=== PATIENT | male | born 1955 | race Caucasian/White ===

== ENCOUNTER 2018-05-07 12:36 | Inpatient (IN) | payer BC ==
--- NOTE | 2018-05-07 15:15 | CT ---
CTA CHEST WITH CONTRAST WITH 3D VOLUME RENDERING: Date: 05/07/18 Reference made to prior, recent noncontrast CT thorax. INDICATION: History of dyspnea, unproductive cough, with abnormal mass-like opacities on preceding noncontrast CT chest. FINDINGS: Redemonstration of a large mass centered about the mediastinum and left hilum. This does encase the l eft pulmonary arterial branches without a discrete filling defect of the pulmonary arterial system. T he adjacent left upper lobe reveals a prominent region of consolidation which consists of numerous de nsely packed small rounded nodules and other coalescent larger mass-like/nodular opacities. In additi on, there is interstitial and ground-glass opacity of the adjacent left pulmonary parenchyma. Numerou s conglomerate pathologically enlarged lymph nodes are redemonstrated within the chest, most notable within the superior and anterior mediastinum, with inferior extension into the paratracheal region, A P recess, and left hilar region. There is scattered vascular calcification. Pulmonary emphysema is pr esent. No evidence of pleural effusion or pneumothorax. IMPRESSION: Extensive mass-like conglomerate adenopathy of the chest, as discussed above, with probable associate d metastatic invasion of the left pulmonary parenchyma and possibly superimposed postobstructive cons olidation. Primary consideration would include lymphoma versus other malignancy. POS: MIGUEL ANGEL
[2018-05-07] MEDS ORDERED: ISOVUE-370 76%-LOCM 1 ML ONE (16:42)
[2018-05-07 17:49] VITALS: BMI 37.8
[2018-05-07] MEDS ORDERED: PROVENTIL INHALER 6.7 G (200 INHALATIONS) INH PRN (19:25)
[2018-05-07] MEDS ORDERED: predniSONE 5 MG TAB PO SCH (19:30)
[2018-05-07] MEDS ORDERED: Non-Formulary Item 1 EACH (Fluticasone/Vilanterol [Breo Ellipta] 1 INH) IH SCH (21:00)
[2018-05-07] MEDS ORDERED: Ondansetron ODT 4 MG TAB PO PRN (21:41)
[2018-05-07] MEDS ORDERED: Ondansetron PF 4 MG/2 ML Vial IVP PRN (21:41)
[2018-05-07] MEDS: CeleCOXIB 100 MG CAP PO SCH (21:51)
[2018-05-07] MEDS: Rosuvastatin 10 MG TAB PO SCH (21:51)
[2018-05-07] MEDS: Tamsulosin HCl 0.4 MG CAP PO SCH (21:51)
[2018-05-07] MEDS: Nicotine 14 MG PATCH TD SCH (23:00)
--- NOTE | 2018-05-08 02:50 | HP ---
PRIMARY CARE PHYSICIAN: Dr. Scott Abbott. CHIEF COMPLAINT: Cough and shortness of breath. HISTORY OF PRESENT ILLNESS: Mr. Perry is a pleasant 62-year-old man with past medical history of hypertension, GERD, obesity, atrial fibrillation, osteoarthritis, sleep apnea, and hyperlipidemia, who had presented to [facility] with cough and shortness of breath. He states that symptoms have been going on for roughly 3 months. He states over the last 3 months, he has been trying to avoid these symptoms himself, he had not wanted to follow up with his doctor due to the holidays and everything going on in his personal life. He had seen Dr. Abbott about 1 month ago and had treated him for possible bronchitis, he was started on Levaquin and prednisone. He states he had recently followed up with Dr. Abbott due to his worsening symptoms and then was increased on Levaquin and prednisone. The patient was also using albuterol at home as needed, but he states that he had noticed a little help from this. He states over the last 3 to 4 days, has been quite concerning due to the fact that he was coughing up blood. He states that his sputum was blood-streaked, however, this was quite concerning for him. He states he had followed up with his PCP earlier today; however, they had directed him to the emergency department for further evaluation and management. Upon arrival, he had underwent a chest x-ray which was abnormal that showed perihilar mass like opacity and silhouetting of the left heart margin and chest CT was recommended. He had then underwent a CT of chest without contrast, which did show a large left perihilar mass with mediastinal invasion as well as extensive subcarinal prevascular, AP window, right paratracheal adenopathy as well as right hilar lymph nodes. This was concerning for cancer. He then underwent CTA of chest which showed extensive masslike conglomerate adenopathy of chest with probable associated metastatic invasion of the left pulmonary parenchymal and possible superimposed postobstructive consolidation. He was then transferred up to telemetry for further monitoring and management. REVIEW OF SYSTEMS: Positive for cough, shortness of breath, hemoptysis, and overall generalized weakness that had been worsening over the last 3 months. All other review of systems reviewed and are negative except ones listed in HPI. PAST MEDICAL HISTORY: Hypertension, GERD, obesity, constipation, atrial fibrillation, osteoarthritis, low back pain, obstructive sleep apnea, hyperlipidemia. PAST SURGICAL HISTORY: Ablation, EGD normal in 2010, cervical diskectomy in 2014, back surgery x3, pacemaker in 2000, septoplasty. PSYCHIATRIC HISTORY: None. SOCIAL HISTORY: The patient smokes about a half pack daily. He also reports social alcohol use with 1-2 drinks per month on average, but denies any illicit drug use. KNOWN ALLERGIES: Atenolol, atorvastatin, hydrocodone, and loratadine. CURRENT HOME MEDICATIONS: 1. Colace 100 mg p.o. daily. 2. Celebrex 200 mg p.o. b.i.d. 3. Tamsulosin 0.4 mg p.o. at bedtime. 4. CoQ10 100 mg p.o. at bedtime. 5. Aspirin 81 mg p.o. at bedtime. 6. Metoprolol 50 mg p.o. daily. 7. Albuterol sulfate 8.5 g HFA 1-2 puffs inhalation every 4 hours as needed for shortness of breath. 8. Prednisone 5 mg dose pack which he is currently finishing, he is to take 3 mg today, 2 mg tomorrow, and 1 mg the next day. 9. Breo 100 mcg/25 mcg one inhalation at bedtime. 10. Rosuvastatin 10 mg p.o. at bedtime. 11. Omeprazole 40 mg p.o. at bedtime. PHYSICAL EXAMINATION: VITAL SIGNS: BP 143/68, pulse 82, respirations 22, O2 saturations 99% on 2 L via nasal cannula. GENERAL: The patient is alert and oriented x3. No acute distress noted. Several family members at bedside. HEENT: Head is atraumatic, normocephalic. Pupils round, reactive to light. Extraocular muscles intact. Oropharynx is clear without erythema or exudates. Moist mucous membranes noted. NECK: Supple. No JVD. No bruit noted. Trachea midline. RESPIRATORY: Scattered rhonchi throughout, worse on the left. CARDIOVASCULAR: Positive S1 and S2. Regular rate and rhythm. No murmur noted. ABDOMEN: Soft, nontender. Bowel sounds present. Obese. No masses noted. No peritoneal signs. No rigidity, guarding, or rebound. BACK: Nontender. No CVA tenderness. MUSCULOSKELETAL: Strength 5+ bilaterally in upper and lower extremities. Moves all extremities equal. Radial and pedal pulses palpable. No edema noted. NEUROLOGIC: Alert and oriented x3. Speech is intact and normal. No focal deficits noted. No sensory deficits noted. SKIN: Warm, dry, and intact. No lesions. No rashes noted. PSYCHIATRIC: Does appear slightly anxious, otherwise good affect. LABORATORY DATA: WBC 12.2, RBC 5.54, hemoglobin 17.1, platelets 155. Sodium 139, potassium 4.3, anion gap 13, BUN 25, creatinine 0.77, estimated GFR greater than 90, glucose 106, AST 24, ALT 30, alkaline phosphatase 65. Troponin less than 0.010. BNP 13.6. DIAGNOSTIC IMAGING: Portable chest x-ray revealed abnormal chest radiograph with hilar/perihilar masslike opacity and silhouetting on the left heart margin, may be on the basis of infectious or neoplastic etiologies, widening of the superior mediastinum may reflect mediastinal mass or adenopathy. Other etiologies are not excluded, consider chest CT for further evaluation. CT chest showed a large left perihilar mass with mediastinal invasion as well as extensive subcarinal, prevascular, AP window, right peritracheal adenopathy as well as right hilar lymph nodes. This is not a cancer until proven otherwise, there are metastatic satellite nodules throughout the left upper lobe as well as postobstructive pneumonitis and superimposed lymphatic spread of tumor. CTA of chest showed extensive mass like conglomerate adenopathy of chest with probable associated metastatic invasion of the left pulmonary parenchymal and possibly superimposed postobstructive consolidation. Primary consideration would include lymphoma versus other malignancy. ASSESSMENT AND PLAN: 1. New perihilar mass. We will place consult for Pulmonology and Oncology Services for further evaluation. The patient will remain on oxygen via nasal cannula for now, home oxygen evaluation will be obtained prior to discharge as he may benefit from home oxygen. 2. Shortness of breath, likely secondary to above. We will place on home albuterol as well as adding DuoNeb treatments. He is finishing prednisone course. CT and CTA results were thoroughly explained to the patient and family members. Further emotional support given and we will await further recommendations from Pulmonology and Oncology Services. 3. Hypertension. Continue the patient's home medications. 4. Hyperlipidemia. Continue the patient's home regimen. 5. Tobacco use. Further discussion was made to educate the patient on smoking cessation, he will remain on a nicotine patch during hospital course. 6. History of BPH, continue on tamsulosin. 7. DVT prophylaxis with SCDs. 8. GI prophylaxis with Pepcid twice daily and Zofran as needed for nausea. 9. Code status, full code. 10. Disposition, pending the patient's progress and clinical findings. Job ID: [id number]
[2018-05-08 05:35] LABS: #Lymphocytes 1.1 thou/uL (1.20-3.40); #Monocytes 0.9 thou/uL (0.11-0.59); #Neutrophils 12.4 thou/uL (1.40-6.50); %Basophils 0.1 % (0.0-1.0); %Eosinophils 0.2 % (0.0-10.0); %Lymphocytes 7.8 % (21.0-51.0); %Monocytes 6.4 % (0.0-10.0); %Neutrophils 85.5 % (42.0-75.0); Hemoglobin 16.3 g/dL (14.0-18.0); Mean Corpuscular HGB CONC 32.5 g/dL (32.0-36.0); Mean Corpuscular Hemoglobin 31.7 pg (27.0-31.0); Mean Corpuscular Volume 97.6 fL (78.0-98.0); Mean Platelet Volume 7.6 fL (7.4-10.4); Platelet Count 155 thou/uL (130-400); RBC Distribution Width 12.7 % (11.5-14.5); Red Blood Cell (RBC) Count 5.13 mill/uL (4.70-6.10); White Blood Cell (WBC) Count 14.5 thou/uL (4.8-10.8)
[2018-05-08 05:51] LABS: Anion Gap 14 mmol/L (10-20); BUN (Urea Nitrogen) 22 mg/dL (8.4-25.7); Calc. Creatinine Clearance 196 mL/min (70-130); Carbon Dioxide 24 mmol/L (22-29); Chloride 107 mmol/L (98-107); Estimated GFR-MDRD Greater than 90; Glucose 109 mg/dL (70-105); Potassium 4.6 mmol/L (3.5-5.1); Sodium 140 mmol/L (136-145)
[2018-05-08] MEDS ORDERED: predniSONE 5 MG TAB PO SCH (08:00)
[2018-05-08] MEDS: Mometasone/Formoterol 120 PUFF INHALER INH SCH ×2 (08:24→19:12)
[2018-05-08] MEDS ORDERED: Prevnar 13-Val Conj/PF 0.5 ML SYRINGE IM ONE (09:00)
[2018-05-08] MEDS: Docusate 100 MG CAP PO SCH (09:20)
[2018-05-08] MEDS: CeleCOXIB 100 MG CAP PO SCH ×2 (09:21→21:25)
[2018-05-08] MEDS: Famotidine 20 MG TAB PO SCH ×2 (09:23→21:25)
[2018-05-08] MEDS ORDERED: Dexamethasone 4 MG in Sodium Chloride 0.9% 50 ML IVPB SCH (12:00)
[2018-05-08] MEDS ORDERED: cefTRIAXone\\ROCEPHIN 1 GM in Sodium Chloride 0.9% 100 ML IVPB SCH (12:00)
[2018-05-08] MEDS ORDERED: LIDOCAINE HCL 4% Topical Sol (4 ML SOLN.PK.G.) FS SCH (12:00)
--- NOTE | 2018-05-08 12:43 | CON ---
DATE OF CONSULTATION: HISTORY OF PRESENT ILLNESS: Jai Perry is a 62-year-old obese gentleman, 6 feet 2 inches, 296 pounds, BMI 38, who has seen Dr. Lucero in office in June for slowly resolving pneumonia. He now presents with a several month history of cough, congestion, wheezing, unresponsive to multiple medication as prescribed by his primary care physician including antibiotics and steroids. X-ray was taken yesterday, which showed a big mass. CAT scan confirms the very extensive mass with extensive adenopathy masses involving the mediastinum, left hilum encasing the left pulmonary artery branches, multiple enlarged lymph nodes, which are seen in the anterior mediastinum extending into the paratracheal area, AP axis left hilar region is enlarged. The patient has smoked a pack a day for most of his life. He has a previous history of pneumonia in June last year, which resolved over the course of time. No previous history of asthma. PAST MEDICAL HISTORY: Hypertension, reflux, obesity, probably sleep apnea, high cholesterol. PAST SURGICAL HISTORY: For multiple ablation, he has had pacemaker now. Back surgeries x3, disk surgeries 2000, pacemaker with multiple battery changes, sinus surgery, tonsillectomy, uvuloplasty surgery. MEDICATIONS: Include; 1. Omeprazole 40. 2. Toprol-XL 50. 3. Prednisone recently given. 4. Crestor 10. 5. Flomax 0.4. 6. Celebrex 200. 7. Aspirin. ALLERGIES: TENORMIN, LIPITOR, HYDROCODONE. SOCIAL HISTORY: Remarkable for tobacco. No alcohol. FAMILY HISTORY: Noncontributory. REVIEW OF SYSTEMS: 10-point negative. PHYSICAL EXAMINATION: VITAL SIGNS: Sats are 96% on room air, respiratory rate 20, temperature 97, blood pressure 125/76. CHEST: Reveals extensive wheezing. CARDIAC: Normal S1 and S2. No gallops. ABDOMEN: Soft without any masses. NEUROLOGIC: Awake, alert, and responsive. LABORATORY DATA: White count 14,000, H and H 16 and 50, platelet count 155. Lytes are normal. IMPRESSION: 1. 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 2. Tobacco abuse. 3. Sleep apnea. 4. SVT, status post pacemaker. I will start on Decadron, neb treatment, and supportive care. Diagnostic bronchoscopy in the morning. Further recommendation above. This is a consultation note of 70 minutes, of which 50% in direct patient's care. Job ID: [id number]
--- NOTE | 2018-05-08 13:59 | CT ---
CT ABDOMEN AND PELVIS WITH IV AND ORAL CONTRAST: HISTORY: Lung cancer. Initial staging. COMPARISON: 04/02/2010 FINDINGS: Within the anterior segment of the right liver lobe, near the periphery, a very subtle, ill-defined, 3.3 cm, low density lesion has the appearance of a mass. No other masses are evident. No enlarged l ymph nodes. Calcification throughout the arterial structures. Dystrophic calcification associated w ith the medial cortex of the right kidney. A 0.6 cm calculus is present within a nondilated calyx at the inferior pole of the left kidney. The urinary bladder is decompressed. Postoperative and degenerative changes of the lumbar spine. IMPRESSION: 1. Probable metastatic mass of the right liver lobe. Before assuming this is a metastatic focus, pl ease consider MRI liver, with and without Gadolinium contrast, for confirmation and better characteri zation. 2. Nonobstructing 5 mm left renal calculus. 3. Atherosclerosis. POS: MIGUEL ANGEL
[2018-05-08] MEDS ORDERED: Sodium Chloride 0.9% 10 ML ONE (14:15)
[2018-05-08] MEDS: Sodium Chloride 0.9% 1,000 ML IV SCH (14:18)
[2018-05-08] MEDS: cefTRIAXone\\ROCEPHIN 1 GM in Sodium Chloride 0.9% 100 ML IVPB SCH (14:19)
[2018-05-08] MEDS: Dexamethasone 4 mg/ml Vial SLOW IVP SCH ×3 (14:19→23:12)
[2018-05-08] MEDS: Phenergan/Codeine 10-6.25mg/5ml UDCUP PO PRN ×2 (14:56→23:12)
--- NOTE | 2018-05-08 16:25 | PDOC.PN ---
- Subjective Encounter Start Date: 05/08/18 Encounter Start Time: 14:00 Patient lying in bed with family members at bedside. No events over night. He denies chest pain. SOB stable, he was not tolerating nasal cannula, but O2 remains stable. Dr Bynum plans for bronchoscopy with likely biopsy. He reports taking Phenergan with codeine at home that was not started here. - Objective Resuscitation Status - Order Detail: 05/07/18 21:41 Resuscitation Status Routine Co-Sign Provider: Resuscitation Status: FULL: Full Resuscitation MAR Reviewed: Yes Vital Signs & Weight: Vital Signs (12 hours) Temp Pulse Resp BP Pulse Ox 05/08/18 12:00 96.5 F L 74 20 125/76 05/08/18 08:24 65 20 05/08/18 08:00 96.5 F L 74 22 H 125/76 96 Weight Weight 296 lb 1.6 oz I&O: 05/07/18 05/08/18 05/09/18 06:59 06:59 06:59 Intake Total 410 Balance 410 Result Diagrams: 05/08/18 04:44 05/08/18 04:44 Radiology Reviewed by me: Yes Phys Exam - Physical Examination Emotional HEENT: PERRLA, moist MMs, oral pharynx no lesions Neck: no nodes, no JVD, supple Respiratory: wheezing present Rhonchi present Cardiovascular: RRR, no significant murmur, no rub Gastrointestinal: soft, non-tender, no distention, positive bowel sounds Musculoskeletal: no edema, pulses present Neurological: non-focal, normal sensation, moves all 4 limbs Lymphatic: no nodes Psychiatric: normal affect, A&O x 3 Skin: no rash, normal turgor, cap refill <2 seconds Dx/Plan (1) Hilar mass Code(s): R91.8 - OTHER NONSPECIFIC ABNORMAL FINDING OF LUNG FIELD Status: Acute (2) Hilar adenopathy Code(s): R59.0 - LOCALIZED ENLARGED LYMPH NODES Status: Acute (3) Liver mass Code(s): R16.0 - HEPATOMEGALY, NOT ELSEWHERE CLASSIFIED Status: Acute (4) Hypertension Code(s): I10 - ESSENTIAL (PRIMARY) HYPERTENSION Status: Acute (5) Tobacco abuse Code(s): Z72.0 - TOBACCO USE Status: Acute - Plan cont current plan of care, plan discussed w/ family, DVT proph w/SCDs * Continue supportive care * Emotional support given * Dr Bynum plans for bronchoscopy tomorrow, started decadron * Oncology services following * Await biopsy results * CT findings reviewed and discussed with patient and family, questions answered * Patient will need further imaging of brain to r/o mets * Add home dose of phenergan with codeine for cough * Monitor vitals and labs
[2018-05-08] MEDS ORDERED: Iopamidol 370 76% 100 ML VIAL ONE (16:59)
--- NOTE | 2018-05-08 17:48 | CON ---
DATE OF CONSULTATION: REASON FOR CONSULTATION: Lung mass. HISTORY OF PRESENT ILLNESS: A 62-year-old male with extensive smoking history, presents to the hospital with worsening shortness of breath and cough. The patient states that for the past 3 plus months he has had worsening shortness of breath, dyspnea on exertion, and cough. He denies any symptoms of shortness of breath at rest when lying in bed or sitting in the chair; however, within 30 to 60 seconds of walking, he has severe shortness of breath and has to rest and feels like he is going to pass out. His cough has also been worsening and is mildly productive of sputum with streaks of blood. He was seen by his primary care physician, Dr. Abbott, who treated him with antibiotics and steroids for possible bronchitis; however, symptoms did not improve. He then saw Dr. Abbott again, who referred him to the ER due to worsening symptoms. The patient denies any pain in his chest. Denies fevers, night sweats, unintentional weight loss, nausea, vomiting, diarrhea, or constipation. The patient has smoked 1 to 2 packs per day since age 15 and decreased to half a pack a day when his symptoms started 3 months ago. He has a family history of breast cancer in his mother and uterine cancer in his sister. The patient states that he had a chest x-ray done in June of this year by Dr. Lucero, which did not show any mass. On presentation to the hospital, he had a CT angio of the chest, that showed a large mass in the mediastinum and left hilum, that encases the left pulmonary arterial branches. An adjacent left upper lobe revealed prominent region of consolidation, which consisted numerous densely-packed small rounded nodules and other coalescent larger masslike nodular opacities along with interstitial and ground-glass opacities of the adjacent left pulmonary parenchyma. Numerous conglomerate pathologically enlarged lymph nodes were re-demonstrated in the chest and were notable within the superior and anterior mediastinum with inferior extension into the paratracheal region, AP, recess, and left hilar region. REVIEW OF SYSTEMS: A 10-point review of systems is negative as per HPI. PAST MEDICAL HISTORY: Tobacco abuse, hypertension, GERD, obesity, atrial fibrillation, status post pacemaker implantation, osteoarthritis, obstructive sleep apnea, hyperlipidemia. PAST SURGICAL HISTORY: Cardiac ablation, EGD, cervical diskectomy in 2014, back surgery x3, pacemaker in 2000, and septoplasty. SOCIAL HISTORY: Tobacco abuse from age 15 to current, ranging from 1 to 2 packs a day and currently half a pack daily for the last 3 months. Denies alcohol or drug abuse. ALLERGIES: ATENOLOL, ATORVASTATIN, HYDROCODONE, AND LORATADINE. CURRENT MEDICATIONS: Reviewed. PHYSICAL EXAMINATION: VITAL SIGNS: Temperature 96.5, pulse 74, respirations 22, saturation 96% on room air, blood pressure 125/76. GENERAL APPEARANCE: The patient is sitting up in bed, in no acute distress. HEENT: Normocephalic, atraumatic. No scleral icterus. NECK: Supple. RESPIRATIONS: Scattered rhonchi throughout with decreased breath sounds in the left upper lung field. CARDIOVASCULAR: S1 and S2 with regular rhythm and rate. No murmurs. ABDOMEN: Obese, but soft, nondistended, and nontender. SKIN: No rash. LYMPHATICS: No palpable lymphadenopathy. NEUROLOGIC: Cranial nerves 2 through 12 grossly intact and otherwise nonfocal exam. PSYCHIATRIC: Awake, alert, and oriented x3. LABORATORY DATA: White blood cells 14.5, hemoglobin 16.3, hematocrit 50.1, platelets 155, neutrophils 85.5%. Sodium 140, potassium 4.6, BUN 22, creatinine 0.76, glucose 109, calcium 9.0. IMAGING DATA: CT angio of the chest with contrast dated May 07, 2018, shows a large mass centered about the mediastinum and left hilum, that does encase the left pulmonary arterial branches without a discrete filling defect of the pulmonary arterial system. The adjacent left upper lobe reveals a prominent region of consolidation, which consisted numerous densely-packed small rounded nodules and other coalescent larger masslike nodular opacities. In addition, there is interstitial and ground-glass opacity of the adjacent left pulmonary parenchyma. Numerous conglomerate pathologically enlarged lymph nodes are re-demonstrated within the chest, most notable within the superior and anterior mediastinum with inferior extension into the paratracheal region, AP, recess, and left hilar region. Pulmonary emphysema is present. No pleural effusion or pneumothorax. ASSESSMENT AND PLAN: A 62-year-old male with long history of tobacco abuse, presenting with worsening shortness of breath and cough and found to have a large left hilar mediastinal mass with multiple mediastinal lymph nodes and left parenchymal disease. The patient likely has a primary lung cancer, but could also have a lymphoma. The patient is severely symptomatic with shortness of breath and cough, however, is maintaining his oxygen saturation. The patient requires further staging with CAT scan of the abdomen and pelvis and possibly MRI of the brain if this is confirmed to be a primary lung cancer. Dr. Bynum has been consulted for possible bronchoscopy with biopsy. Recommend nebulizer treatments and oxygen as needed for symptom control. Treatment will depend on final diagnosis of his lung mass. Potential treatments and prognosis for the differential diagnosis of this mass were discussed with the patient and his family members at the bedside. We will follow along with you. Thank you for this consult. Job ID: [id number]
[2018-05-08] MEDS: Budesonide 0.5 MG/2 ML NEB INH SCH (19:11)
[2018-05-08] MEDS: Tamsulosin HCl 0.4 MG CAP PO SCH (21:25)
[2018-05-08] MEDS: Rosuvastatin 10 MG TAB PO SCH (21:25)
[2018-05-08] MEDS: Acetaminophen 325 MG TAB PO PRN (21:25)
[2018-05-08] MEDS: Nicotine 14 MG PATCH TD SCH (23:12)
[2018-05-09 05:33] LABS: #Lymphocytes 0.9 thou/uL (1.20-3.40); #Monocytes 0.5 thou/uL (0.11-0.59); #Neutrophils 9.5 thou/uL (1.40-6.50); %Basophils 0.1 % (0.0-1.0); %Eosinophils 0.3 % (0.0-10.0); %Lymphocytes 8.4 % (21.0-51.0); %Monocytes 4.6 % (0.0-10.0); %Neutrophils 86.6 % (42.0-75.0); Hemoglobin 16.4 g/dL (14.0-18.0); Mean Corpuscular HGB CONC 32.2 g/dL (32.0-36.0); Mean Corpuscular Hemoglobin 31.6 pg (27.0-31.0); Mean Corpuscular Volume 98.2 fL (78.0-98.0); Mean Platelet Volume 7.6 fL (7.4-10.4); Platelet Count 157 thou/uL (130-400); RBC Distribution Width 12.9 % (11.5-14.5)
[2018-05-09 05:55] LABS: Anion Gap 13 mmol/L (10-20); BUN (Urea Nitrogen) 24 mg/dL (8.4-25.7); Calc. Creatinine Clearance 196 mL/min (70-130); Calcium 8.7 mg/dL (7.8-10.44); Carbon Dioxide 24 mmol/L (22-29); Chloride 108 mmol/L (98-107); Estimated GFR-MDRD Greater than 90; Glucose 111 mg/dL (70-105); Potassium 4.5 mmol/L (3.5-5.1); Sodium 140 mmol/L (136-145)
[2018-05-09] MEDS: Dexamethasone 4 mg/ml Vial SLOW IVP SCH (05:59)
[2018-05-09] MEDS ORDERED: Benzocaine 20% Spray 60 ML CAN ONE (07:27)
[2018-05-09] MEDS ORDERED: Cepastat Lozenges 1 LOZ PO PRN (07:37)
[2018-05-09] MEDS ORDERED: Loperamide HCl 2 MG CAP PO PRN (07:37)
[2018-05-09] MEDS ORDERED: Eucerin (Mineral Oil/Petrolatum,White) 30 gm Jar TOP PRN (07:37)
[2018-05-09] MEDS ORDERED: Sodium Chloride 0.65% Nasal 44 ML BOT EA NARE PRN (07:37)
[2018-05-09] MEDS ORDERED: Artificial Tears 18 DROP/0.9 ML EA EYE PRN (07:37)
[2018-05-09] MEDS ORDERED: Bisacodyl 10 MG SUPP PR PRN (07:37)
[2018-05-09] MEDS ORDERED: Calcium Carbonate 500 MG ChewTAB PO PRN (07:37)
[2018-05-09] MEDS ORDERED: Diabetic Tussin 200 MG/10 ML UDCUP PO PRN (07:37)
[2018-05-09] MEDS ORDERED: hydrALAZINE 20 MG/ML VIAL SLOW IVP PRN (07:37)
[2018-05-09] MEDS ORDERED: Zolpidem Tartrate 5 MG TAB PO PRN (07:37)
[2018-05-09] MEDS ORDERED: predniSONE 5 MG TAB PO SCH (08:00)
[2018-05-09] MEDS ORDERED: Lidocaine 1% (PF) 30 ML VIAL ONE ×2 (08:53→09:59)
[2018-05-09] MEDS ORDERED: Fentanyl 100 MCG/2 ML VIAL ONE (08:58)
[2018-05-09] MEDS ORDERED: Midazolam HCl 2 mg/2 ml Vial ONE (08:58)
[2018-05-09] MEDS: Famotidine 20 MG TAB PO SCH ×2 (09:00→21:08)
[2018-05-09] MEDS: Docusate 100 MG CAP PO SCH (09:00)
[2018-05-09] MEDS: CeleCOXIB 100 MG CAP PO SCH ×2 (09:00→21:16)
[2018-05-09] MEDS ORDERED: EPINEPHrine 1 MG/10 ML Abboject SYRINGE ONE (09:32)
[2018-05-09] MEDS: Budesonide 0.5 MG/2 ML NEB INH SCH ×2 (10:21→18:22)
[2018-05-09] MEDS: Mometasone/Formoterol 120 PUFF INHALER INH SCH ×2 (10:21→18:23)
--- NOTE | 2018-05-09 10:23 | PDOC.PN ---
- Subjective Encounter Start Date: 05/09/18 Encounter Start Time: 10:00 -: old records requested/rev Patient seen and examined. No new complaints. No overnight events pt has bronchoscopy today - Objective Resuscitation Status - Order Detail: 05/07/18 21:41 Resuscitation Status Routine Co-Sign Provider: Resuscitation Status: FULL: Full Resuscitation MAR Reviewed: Yes Vital Signs & Weight: Vital Signs (12 hours) Temp Pulse Resp BP Pulse Ox 05/09/18 10:18 68 18 05/09/18 07:52 95 05/09/18 07:50 96.5 F L 62 21 H 149/80 H 95 05/09/18 06:00 97.6 F 05/09/18 03:52 97.5 F L 69 16 108/61 98 Weight Weight 296 lb 1.6 oz I&O: 05/08/18 05/09/18 05/10/18 06:59 06:59 06:59 Intake Total 410 1078 Output Total 700 Balance 410 378 Result Diagrams: 05/09/18 04:36 05/09/18 04:36 Radiology Reviewed by me: Yes (all radiological investigation reviweed) EKG Reviewed by me: Yes (nsr) Phys Exam - Physical Examination Constitutional: NAD HEENT: PERRLA, moist MMs, sclera anicteric Neck: no JVD, supple Respiratory: no rales, wheezing present Cardiovascular: RRR, no significant murmur, no rub Gastrointestinal: soft, non-tender, no distention, positive bowel sounds Musculoskeletal: no edema, pulses present Neurological: non-focal, normal sensation, moves all 4 limbs Lymphatic: no nodes Psychiatric: normal affect, A&O x 3 Skin: no rash, normal turgor Dx/Plan (1) Hilar adenopathy Code(s): R59.0 - LOCALIZED ENLARGED LYMPH NODES Status: Acute (2) Hilar mass Code(s): R91.8 - OTHER NONSPECIFIC ABNORMAL FINDING OF LUNG FIELD Status: Acute (3) Liver mass Code(s): R16.0 - HEPATOMEGALY, NOT ELSEWHERE CLASSIFIED Status: Acute (4) BPH (benign prostatic hyperplasia) Code(s): N40.0 - BENIGN PROSTATIC HYPERPLASIA WITHOUT LOWER URINRY TRACT SYMP Status: Chronic (5) Dyslipidemia Code(s): E78.5 - HYPERLIPIDEMIA, UNSPECIFIED Status: Chronic (6) GERD (gastroesophageal reflux disease) Code(s): K21.9 - GASTRO-ESOPHAGEAL REFLUX DISEASE WITHOUT ESOPHAGITIS Status: Chronic (7) Hypertension Code(s): I10 - ESSENTIAL (PRIMARY) HYPERTENSION Status: Chronic (8) Obesity (BMI 30-39.9) Code(s): E66.9 - OBESITY, UNSPECIFIED Status: Chronic (9) Tobacco abuse Code(s): Z72.0 - TOBACCO USE Status: Chronic - Plan cont current plan of care, plan discussed w/ family, continue antibiotics, respiratory therapy * oncology and pulmonary recommendation appreciated * follow up on biopsy result * continue rocephin * dc tele * transfer to oncology * medication reviewed as below * symptomatic treatment. * continue respiratory therapy * discussed with family bedside Review of Systems - Review of Systems ENT: negative: Ear Pain, Ear Discharge, Nose Pain, Nose Discharge, Nose Congestion, Mouth Pain, Mouth Swelling, Throat Pain, Throat Swelling, Other Respiratory: Cough, Shortness of Breath, Wheezing. negative: Dry, Hemoptysis, SOB with Excertion, Pleuritic Pain, Sputum Cardiovascular: negative: chest pain, palpitations, orthopnea, paroxysmal nocturnal dyspnea, edema, light headedness, other Gastrointestinal: negative: Nausea, Vomiting, Abdominal Pain, Diarrhea, Constipation, Melena, Hematochezia, Other Genitourinary: negative: Dysuria, Frequency, Incontinence, Hematuria, Retention , Other Musculoskeletal: negative: Neck Pain, Shoulder Pain, Arm Pain, Back Pain, Hand Pain, Leg Pain, Foot Pain, Other - Medications/Allergies Allergies/Adverse Reactions: Allergies Allergy/AdvReac Type Severity Reaction Status Date / Time atenolol [From Tenormin] Allergy Headache Verified 05/07/18 17:29 atorvastatin [From Lipitor] Allergy leg cramps Verified 05/07/18 17:29 hydrocodone bitartrate Allergy syncope/con Verified 05/07/18 17:29 [From Vicodin] stipation/h eadache loratadine [From Claritin] Allergy drowsiness Verified 05/07/18 17:29 Medications: Current Medications Acetaminophen (Tylenol) 650 mg PO Q4H PRN PRN Reason: Headache/Fever/Mild Pain (1-3) Last Admin: 05/08/18 21:25 Dose: 650 mg Albuterol Sulfate (Proventil Hfa) 2 puff INH Q4H PRN PRN Reason: SOB &/or Wheezing Last Admin: 05/08/18 08:25 Dose: 2 puff Albuterol/Ipratropium (Duoneb) 3 ml NEB WILLCALL [facility] Stop: 05/09/18 11:46 Albuterol/Ipratropium (Duoneb) 3 ml NEB [id number] [facility] Last Admin: 05/09/18 10:22 Dose: Not Given Artificial Tears (Tears Naturale) 2 drop EA EYE PRN PRN PRN Reason: Dry Eyes Aspirin (Aspirin Chewable) 81 mg PO HS [facility] Last Admin: 05/08/18 21:26 Dose: 81 mg Bisacodyl (Dulcolax) 10 mg NH DAILYPRN PRN PRN Reason: Constipation Budesonide (Pulmicort Neb Solution) 0.5 mg INH BID-RT [facility] Last Admin: 05/09/18 10:21 Dose: Not Given Calcium Carbonate (Tums) 1,000 mg PO Q4H PRN PRN Reason: Heartburn or Indigestion Celecoxib (Celebrex) 200 mg PO BID [facility] Last Admin: 05/08/18 21:25 Dose: 200 mg Coenzyme Q10 (Coenzyme Q10) 100 mg PO HS [facility] Dexamethasone (Decadron) 4 mg SLOW IVP Q6HR [facility] Last Admin: 05/09/18 05:59 Dose: 4 mg Docusate Sodium (Colace) 100 mg PO DAILY [facility] Last Admin: 05/08/18 09:20 Dose: 100 mg Famotidine (Pepcid) 20 mg PO BID [facility] Last Admin: 05/08/18 21:25 Dose: 20 mg Guaifenesin (Robitussin Sf) 200 mg PO Q4H PRN PRN Reason: Cough Hydralazine HCl (Apresoline) 10 mg SLOW IVP Q4H PRN PRN Reason: SBP > 180 and HR < 70 Sodium Chloride (Normal Saline 0.9%) 1,000 mls @ 50 mls/hr IV .Q20H [facility] Last Admin: 05/08/18 14:18 Dose: 1,000 mls Ceftriaxone Sodium 1 gm/ (Sodium Chloride) 100 mls @ 200 mls/hr IVPB Q24HR [facility] Last Admin: 05/08/18 14:19 Dose: 100 mls Lidocaine HCl (Lidocaine Hcl 4% Topical Radha) 4 ml FS WILLCALL [facility] Stop: 05/09/18 12:01 Loperamide HCl (Imodium) 2 mg PO PRN PRN PRN Reason: Diarrhea/Loose Stools Metoprolol Succinate (Toprol Xl) 50 mg PO DAILY [facility] Last Admin: 05/09/18 05:59 Dose: 50 mg Mineral Oil/White Petrolatum (Eucerin Cream) 0 gm TOP BIDPRN PRN PRN Reason: Dry Skin Mometasone Furoate/Formoterol Fumar (Dulera 100 Mcg/5 Mcg Inhaler) 2 puff INH BID-RT [facility] Last Admin: 05/09/18 10:21 Dose: Not Given Nicotine (Nicoderm Patch) 14 mg TD Q24HR [facility] Last Admin: 05/08/18 23:12 Dose: 14 mg Ondansetron HCl (Zofran Odt) 4 mg PO Q6H PRN PRN Reason: Nausea/Vomiting Ondansetron HCl (Zofran) 4 mg IVP Q6H PRN PRN Reason: Nausea/Vomiting Promethazine HCl/Codeine (Phenergan/Codeine Syrup) 5 ml PO Q4H PRN PRN Reason: Cough Last Admin: 05/08/18 23:12 Dose: 5 ml Rosuvastatin Calcium (Crestor) 10 mg PO [facility] Last Admin: 05/08/18 21:25 Dose: 10 mg Senna/Docusate Sodium (Senokot S) 2 tab PO BID PRN PRN Reason: Constipation Sodium Chloride ([place] Nasal [place] 0.65%) 0 ml EA NARE QIDPRN PRN PRN Reason: Nasal Congestion Tamsulosin HCl (Flomax) 0.4 mg PO [facility] Last Admin: 05/08/18 21:25 Dose: 0.4 mg Throat Lozenges (Cepastat Lozenges) 1 daniel PO Q2H PRN PRN Reason: Sore Throat Zolpidem Tartrate (Ambien) 5 mg PO HSPRN PRN PRN Reason: Insomnia
--- NOTE | 2018-05-09 10:49 | PRG ---
DATE OF SERVICE: 05/09/2018 SUBJECTIVE: Jai Perry post bronchoscopy is doing quite well. There is little bit hemoptysis, but no respiratory distress. OBJECTIVE: VITAL SIGNS: His saturations are 93% to 94%, pulse 80, blood pressure 120/80, respiratory rate 18. CHEST: Reveals decreased breath sounds. His wheezing has improved substantially. CARDIAC: Normal S1, S2. No gallops. ABDOMEN: No masses. LABORATORY DATA: Unremarkable. H and H 16 and 51. IMPRESSION: 1. 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 2. Chronic obstructive pulmonary disease. His path is not available today. He could be discharged home tomorrow to follow up with his oncologist. Job ID: [id number]
[2018-05-09] MEDS ORDERED: Iopamidol 370 76% 100 ML VIAL ONE (13:44)
[2018-05-09] MEDS: cefTRIAXone\\ROCEPHIN 1 GM in Sodium Chloride 0.9% 100 ML IVPB SCH (14:45)
--- NOTE | 2018-05-09 17:58 | CT ---
CT OF HEAD WITH AND WITHOUT CONTRAST: 05/09/18 CLINICAL HISTORY: History of liver mass. Evaluation for metastatic disease. FINDINGS: The noncontrast CT scan of the brain reveals no evidence of intracranial hemorrhage, mass effect, mid line shift, or ventriculomegaly. Postcontrast imaging reveals no evidence of an enhancing, intra-axia l mass. Calvarial structures are intact. There is mild, likely chronic, deformity of the anterior art al bones. Imaged mastoid air cells reveal decreased pneumatization on the right, but otherwise are cl ear. There is mild mucosal thickening of the visualized paranasal sinuses. IMPRESSION: No CT evidence to indicate intracranial metastases. POS: [facility]
[2018-05-09] MEDS ORDERED: Succinylcholine Chloride 20 MG/ML 10 ml SYRINGE FS ONE (20:32)
[2018-05-09] MEDS ORDERED: Dexamethasone 20 MG/5 ML VIAL ONE (20:32)
[2018-05-09] MEDS ORDERED: Ondansetron PF 4 MG/2 ML Vial ONE (20:32)
[2018-05-09] MEDS ORDERED: PROPOFOL 200 MG/20 ML VIAL ONE (20:32)
[2018-05-09] MEDS ORDERED: Ketorolac Tromethamine 30 MG/ML VIAL ONE (20:32)
[2018-05-09] MEDS: Tamsulosin HCl 0.4 MG CAP PO SCH (21:08)
[2018-05-09] MEDS: Ubidecarenone 50 MG CAP PO SCH (21:08)
[2018-05-09] MEDS: Rosuvastatin 10 MG TAB PO SCH (21:08)
[2018-05-09] MEDS: Nicotine 14 MG PATCH TD SCH (21:09)
[2018-05-09] MEDS: Sodium Chloride 0.9% 1,000 ML IV SCH (21:36)
--- NOTE | 2018-05-10 03:45 | CON ---
DATE OF CONSULTATION: REASON FOR CONSULT: Need for MediPort placement for chemotherapy. HISTORY OF PRESENT ILLNESS: Mr. Perry is a 62-year-old man who was recently diagnosed with locally advanced bronchogenic carcinoma. His oncologist is hoping to begin chemotherapy tomorrow and has requested MediPort placement. The patient came in because of shortness of breath and cough and was found to have a mass on chest x-ray. Followup CT confirmed the presence of this mass. He denies any pain in his chest and states that he is breathing okay. He also states that he is able to breathe when he is lying flat. He does have a significant smoking history of 1 to 2 packs per day since he was 15 years of age. PAST MEDICAL HISTORY: Tobacco abuse, hypertension, GERD, obesity, atrial fibrillation, osteoarthritis, obstructive sleep apnea, and hyperlipidemia. PAST SURGICAL HISTORY: Cardiac ablation, back surgery, pacemaker placement. SOCIAL HISTORY: Ongoing tobacco abuse since 15 years of age, but no history of drug or alcohol use. ALLERGIES: HE REPORTS ALLERGIES TO, 1. ATENOLOL. 2. ATORVASTATIN. 3. HYDROCODONE. 4. LORATADINE. MEDICATIONS: He is not on any blood thinners except for baby aspirin. Other medications include: 1. Celebrex. 2. Coenzyme Q10. 3. Docusate. 4. Pepcid. 5. Dulera inhaler. 6. Metoprolol. 7. Nicoderm patch. 8. Prednisone 40 mg q.a.m. 9. Crestor. LABORATORY DATA: Head CT was unremarkable. CT of the abdomen and pelvis showed possible metastasis to the right lobe of the liver. ASSESSMENT AND PLAN: Metastatic lung cancer with plans to begin chemotherapy tomorrow. He will require a port placement for this and has been placed on the OR schedule for tomorrow. Inherent risks of the surgery were discussed with the patient and his family. These risks include, but are not limited to, bleeding, infection, risks of anesthesia, damage to nearby structures, need for open surgery, and need for other procedures. He understands and accepts these risks and wishes to proceed. All of his questions were answered. Job ID: [id number]
[2018-05-10 05:13] LABS: #Basophils 0.1 thou/uL (0.0-0.2); #Lymphocytes 2.5 thou/uL (1.20-3.40); #Monocytes 0.9 thou/uL (0.11-0.59); #Neutrophils 8.1 thou/uL (1.40-6.50); %Basophils 0.6 % (0.0-1.0); %Eosinophils 0.4 % (0.0-10.0); %Lymphocytes 21.4 % (21.0-51.0); %Neutrophils 69.5 % (42.0-75.0); Mean Corpuscular HGB CONC 33.1 g/dL (32.0-36.0); Mean Corpuscular Hemoglobin 32.4 pg (27.0-31.0); Mean Corpuscular Volume 97.6 fL (78.0-98.0); Mean Platelet Volume 7.6 fL (7.4-10.4); Platelet Count 143 thou/uL (130-400); RBC Distribution Width 12.9 % (11.5-14.5); Red Blood Cell (RBC) Count 4.96 mill/uL (4.70-6.10); White Blood Cell (WBC) Count 11.6 thou/uL (4.8-10.8)
[2018-05-10 05:49] LABS: ALT (SGPT) 29 U/L (8-55); AST (SGOT) 22 U/L (5-34); Albumin 3.6 g/dL (3.5-5.0); Alkaline Phosphatase 62 U/L (40-150); Anion Gap 12 mmol/L (10-20); BUN (Urea Nitrogen) 32 mg/dL (8.4-25.7); Bilirubin, Total 0.7 mg/dL (0.2-1.2); Calc. Creatinine Clearance 166 mL/min (70-130); Calcium 8.4 mg/dL (7.8-10.44); Carbon Dioxide 23 mmol/L (22-29); Chloride 109 mmol/L (98-107); Estimated GFR-MDRD 86; Globulin 2.5 g/dL (2.4-3.5); Glucose 93 mg/dL (70-105); Potassium 4.2 mmol/L (3.5-5.1); Protein, Total 6.1 g/dL (6.0-8.3); Sodium 140 mmol/L (136-145)
[2018-05-10] MEDS ORDERED: Lidocaine 2% PF 5 ML VIAL ONE (06:51)
[2018-05-10] MEDS ORDERED: Bupivacaine/Epinephrine 0.25% 30 ML VIAL ONE (06:51)
[2018-05-10] MEDS: Budesonide 0.5 MG/2 ML NEB INH SCH ×3 (07:26→20:03)
[2018-05-10] MEDS: Mometasone/Formoterol 120 PUFF INHALER INH SCH ×2 (07:35→20:03)
[2018-05-10] MEDS ORDERED: Sodium Chloride 0.9% 0 ML ONE (07:42)
[2018-05-10] MEDS ORDERED: CEFAZOLIN 1 GM VIAL ONE (07:42)
[2018-05-10] MEDS ORDERED: Propofol 500 MG/50 ML VIAL ONE (07:45)
[2018-05-10] MEDS ORDERED: Fentanyl 100 MCG/2 ML VIAL ONE (07:45)
[2018-05-10] MEDS ORDERED: CEFAZOLIN 2 GM/50 ML BAG ONE (07:54)
[2018-05-10] MEDS ORDERED: CEFAZOLIN 1 GM in Sodium Chloride 0.9% 100 ML IVPB SCH (08:00)
[2018-05-10] MEDS ORDERED: Lidocaine 2% Jelly 5 ML TUBE ONE (08:14)
[2018-05-10] MEDS ORDERED: Midazolam HCl 2 mg/2 ml Vial ONE (08:23)
[2018-05-10] MEDS: CeleCOXIB 100 MG CAP PO SCH (10:55)
[2018-05-10] MEDS: Senokot S 8.6-50 MG TAB PO PRN (11:02)
[2018-05-10] MEDS: predniSONE 20 MG TAB PO SCH (11:02)
[2018-05-10] MEDS: Acetaminophen 325 MG TAB PO PRN (11:02)
[2018-05-10] MEDS: Famotidine 20 MG TAB PO SCH ×2 (11:03→21:06)
[2018-05-10] MEDS: Docusate 100 MG CAP PO SCH (11:03)
--- NOTE | 2018-05-10 11:51 | RAD ---
CHEST 1 VIEW: HISTORY: Dyspnea. Followup. COMPARISON: 05/07/2018. FINDINGS: Cardiac silhouette is magnified and enlarged. Pulmonary vasculature remains markedly engorged. Mass -like prominence at the left hilum is similar in appearance to the prior study. Mediastinum is midli ne with a dual-lead left subclavian cardiac electronic device. The tip of a right internal jugular MediPort now overlies the superior vena cava. No evidence of pne umothorax. IMPRESSION: 1. Right internal jugular MediPort is in good radiographic position. 2. Left hilar mass, pulmonary vascular congestion, and other findings are otherwise stable. POS: [facility]
[2018-05-10] MEDS ORDERED: PALONOSETRON HCL 0.05 MG/ML 5 ML VIAL IVP SCH (13:00)
[2018-05-10] MEDS: cefTRIAXone\\ROCEPHIN 1 GM in Sodium Chloride 0.9% 100 ML IVPB SCH (14:07)
[2018-05-10] MEDS: Phenergan/Codeine 10-6.25mg/5ml UDCUP PO PRN ×2 (14:23→21:19)
--- NOTE | 2018-05-10 15:21 | OP ---
DATE OF PROCEDURE: 05/09/2018 Bronchoscopy note with transbronchial biopsies and brushings. INDICATION: Left upper lung mass. DESCRIPTION OF PROCEDURE: After informed consent, the patient received nebulized 4 mL of 4% lidocaine and DuoNeb. During the procedure, he received a total of 2 mg of IV Versed and 75 mcg of IV fentanyl. His right nostril was prepped with 1% lidocaine jelly. The flexible video Olympus bronchoscope was then passed by the nostril. Pharynx, hypopharynx, and vocal cords were visualized, which were normal. Entering the trachea, this was normal. Leslie was normal. Right lobe was inspected initially. Right upper lobe, right middle lobe, and right lower lobe visualized without any endobronchial obstruction, blood, or pus was seen. The left lung was inspected after left mainstem. The lateral wall was somewhat thickened. Entering the left upper lobe bronchus, there was extensive nodular friable mucosa completely occluding the anterior and lingular segments. I could not visualize any of the sub-segments. Only the apical segment and sub-segment were visualized. Thereafter, the left lower lung was visualized, which was normal. Area of the left upper lung thereafter was lavaged with normal saline completely clear. There was some brisk bleeding even before any biopsy or brushings were initiated. Following this, under fluoroscopy, a brush was passed corresponding to the anterior segment. Multiple pressures from that segment were done. Thereafter, biopsy from the nodular friable mucosa corresponding to the anterior segment and lingular segments were done multiple times. There was some brisk bleeding, which was controlled with epinephrine with total of at least 10 mL of 1:10,000. The patient otherwise tolerated procedure well. The washings will be sent for AFB smear and culture, fungal smear and culture, routine Gram-stain, culture and sensitivity, and cytology. The biopsy was sent for histopathology. The brushing was sent for cytology. The patient tolerated the procedure well. Results made available to the patient and family. Further recommendation after above. Job ID: [id number]
[2018-05-10] MEDS: Dexamethasone 10 MG/ML VIAL SLOW IVP SCH (16:42)
--- NOTE | 2018-05-10 17:01 | PDOC.PN ---
- Subjective Encounter Start Date: 05/10/18 Encounter Start Time: 17:00 "I had a bad night." Coughing fits, dry mouth after bronch. Mediport placed, chemo started. States decadron helps his wheezing. Just received decadron for a premed, I explained that it was the same medication he recalled helped with wheezing in the past. No N/V, appetite preserved. Denies pain at this time. - Objective Resuscitation Status - Order Detail: 05/07/18 21:41 Resuscitation Status Routine Co-Sign Provider: Resuscitation Status: FULL: Full Resuscitation Vital Signs & Weight: Vital Signs (12 hours) Temp Pulse Resp BP Pulse Ox 05/10/18 14:30 86 16 93 L 05/10/18 12:00 98.3 F 73 20 130/64 92 L 05/10/18 10:41 70 16 96 05/10/18 08:00 60 20 95 05/10/18 07:57 60 20 95 05/10/18 07:35 91 L 05/10/18 07:33 97.8 F 62 20 137/72 91 L 05/10/18 06:32 62 131/73 Weight Weight 290 lb I&O: 05/09/18 05/10/18 05/11/18 06:59 06:59 06:59 Intake Total 1078 840 Output Total 700 Balance 378 840 Result Diagrams: 05/10/18 04:19 05/10/18 04:19 Phys Exam - Physical Examination Constitutional: NAD Sitting up, speaking in full sentences HEENT: PERRLA, oral pharynx no lesions Neck: supple, full ROM Occasional rales Cardiovascular: RRR Gastrointestinal: soft, non-tender Musculoskeletal: no edema Neurological: non-focal, moves all 4 limbs Psychiatric: A&O x 3 Skin: no rash Dx/Plan (1) Hilar adenopathy Code(s): R59.0 - LOCALIZED ENLARGED LYMPH NODES Status: Acute Comment: Beginning chemo per oncology today, s/p bronch and mediport (2) Hilar mass Code(s): R91.8 - OTHER NONSPECIFIC ABNORMAL FINDING OF LUNG FIELD Status: Acute (3) Liver mass Code(s): R16.0 - HEPATOMEGALY, NOT ELSEWHERE CLASSIFIED Status: Acute Comment: ASA and Celebrex placed on hold. I am unsure if he will proceed with biopsy or if plan now is for staging with PET scan. Family unsure. Will d/c these meds in case liver tissue needed. (4) BPH (benign prostatic hyperplasia) Code(s): N40.0 - BENIGN PROSTATIC HYPERPLASIA WITHOUT LOWER URINRY TRACT SYMP Status: Chronic (5) Dyslipidemia Code(s): E78.5 - HYPERLIPIDEMIA, UNSPECIFIED Status: Chronic (6) GERD (gastroesophageal reflux disease) Code(s): K21.9 - GASTRO-ESOPHAGEAL REFLUX DISEASE WITHOUT ESOPHAGITIS Status: Chronic (7) Hypertension Code(s): I10 - ESSENTIAL (PRIMARY) HYPERTENSION Status: Chronic (8) Obesity (BMI 30-39.9) Code(s): E66.9 - OBESITY, UNSPECIFIED Status: Chronic (9) Tobacco abuse Code(s): Z72.0 - TOBACCO USE Status: Chronic - Plan cont current plan of care * As above * AML ordered * Mildly elevated BUN noted, IVFs running * Symptomatic treatment for cough/nebs * Case discussed with patient and family
[2018-05-10] MEDS: SODIUM CHLORIDE 0.9% IVPB SCH (18:15)
[2018-05-10] MEDS: ETOPOSIDE IVPB SCH (18:15)
[2018-05-10] MEDS ORDERED: Fluticasone Propionate Nasal Spray 16 gm Bottle NASAL SCH (20:15)
[2018-05-10] MEDS ORDERED: Azelastine 137 MCG/Spray 30 ML NS SCH (20:15)
[2018-05-10] MEDS ORDERED: Montelukast Sodium 10 mg Tablet PO SCH (21:00)
[2018-05-10] MEDS ORDERED: Prevnar 13-Val Conj/PF 0.5 ML SYRINGE IM ONE (21:00)
--- NOTE | 2018-05-10 21:04 | PRG ---
DATE OF SERVICE: 05/10/2018 SERVICE: Pulmonary Medicine. INTERVAL HISTORY: The patient is doing fine from respiratory standpoint. He is breathing comfortably. He is having a cough a little less severe than it was previously. Not bringing up any blood today. He has a lot of streaky white/clear phlegm. He denies any current fevers or chills. No significant overnight events. OBJECTIVE: VITAL SIGNS: Afebrile, pulse 84, blood pressure 141/67, respirations 18, saturation 94% on room air. GENERAL: The patient is awake and alert, in no apparent distress. LUNGS: Decent air entry. There is no prolonged expiratory phase or wheezing present. HEART: Normal rate and regular. ABDOMEN: Soft, nontender, and nondistended. Bowel sounds are positive. MUSCULOSKELETAL: No cyanosis or clubbing. There is no pitting in the bilateral lower extremities. NEUROLOGIC: Grossly nonfocal. LABORATORY DATA: WBC 11.6, hemoglobin 16.0, platelets 143,000. Basic metabolic profile and liver function studies are otherwise unremarkable. IMAGING STUDIES: Chest x-ray demonstrates left hilar mass and pulmonary vascular congestion. Right IJ MediPort is in good radiographic position. Otherwise, I do not see any acute abnormalities. ASSESSMENT: 1. Small-cell lung cancer (this is a preliminary report). 2. Chronic cough. 3. Gastroesophageal reflux disease. 4. Rhinitis. DISCUSSION AND PLAN: We will continue our steroids, nebulized medications. I will add some nasal sprays, and an allergy pill in order to drive some secretions. Lastly, I will encourage the patient to elevate head of bed and avoid p.o. within 2 hours of being supine to decrease reflux. Pulmonary/Critical Care will continue to follow along while the patient remains inhouse. Job ID: [id number]
[2018-05-10] MEDS: Ubidecarenone 50 MG CAP PO SCH (21:05)
[2018-05-10] MEDS: Rosuvastatin 10 MG TAB PO SCH (21:06)
[2018-05-10] MEDS: Tamsulosin HCl 0.4 MG CAP PO SCH (21:06)
[2018-05-10] MEDS: Nicotine 14 MG PATCH TD SCH (21:06)
[2018-05-11] MEDS: Acetaminophen 325 MG TAB PO PRN (03:57)
[2018-05-11 05:49] LABS: #Lymphocytes 0.8 thou/uL (1.20-3.40); #Monocytes 0.7 thou/uL (0.11-0.59); #Neutrophils 10.4 thou/uL (1.40-6.50); %Basophils 0.1 % (0.0-1.0); %Eosinophils 0.2 % (0.0-10.0); %Lymphocytes 6.9 % (21.0-51.0); %Monocytes 6.2 % (0.0-10.0); %Neutrophils 86.7 % (42.0-75.0); Hemoglobin 15.5 g/dL (14.0-18.0); Mean Corpuscular HGB CONC 32.6 g/dL (32.0-36.0); Mean Corpuscular Hemoglobin 31.9 pg (27.0-31.0); Mean Corpuscular Volume 97.8 fL (78.0-98.0); Mean Platelet Volume 7.3 fL (7.4-10.4); Platelet Count 130 thou/uL (130-400); RBC Distribution Width 12.6 % (11.5-14.5); Red Blood Cell (RBC) Count 4.85 mill/uL (4.70-6.10)
[2018-05-11 06:11] LABS: Anion Gap 12 mmol/L (10-20); BUN (Urea Nitrogen) 24 mg/dL (8.4-25.7); Calc. Creatinine Clearance 203 mL/min (70-130); Calcium 8.5 mg/dL (7.8-10.44); Carbon Dioxide 23 mmol/L (22-29); Chloride 109 mmol/L (98-107); Estimated GFR-MDRD Greater than 90; Glucose 121 mg/dL (70-105); Potassium 4.2 mmol/L (3.5-5.1); Sodium 140 mmol/L (136-145)
[2018-05-11] MEDS: Mometasone/Formoterol 120 PUFF INHALER INH SCH ×2 (06:16→19:49)
[2018-05-11] MEDS: predniSONE 20 MG TAB PO SCH (08:17)
[2018-05-11] MEDS: Docusate 100 MG CAP PO SCH (08:17)
[2018-05-11] MEDS: Famotidine 20 MG TAB PO SCH ×2 (08:18→20:19)
[2018-05-11] MEDS: Azelastine 137 MCG/Spray 30 ML NS SCH (08:18)
[2018-05-11] MEDS: Fluticasone Propionate Nasal Spray 16 gm Bottle NASAL SCH (08:18)
[2018-05-11] MEDS: Dexamethasone 10 MG/ML VIAL SLOW IVP SCH (13:50)
[2018-05-11] MEDS: ETOPOSIDE IVPB SCH (13:53)
[2018-05-11] MEDS: SODIUM CHLORIDE 0.9% IVPB SCH (13:53)
[2018-05-11] MEDS: cefTRIAXone\\ROCEPHIN 1 GM in Sodium Chloride 0.9% 100 ML IVPB SCH (15:18)
--- NOTE | 2018-05-11 16:00 | PRG ---
DATE OF SERVICE: 05/11/2018 SUBJECTIVE: The patient is seen and examined at the bedside. He is getting chemotherapy treatment as we speak to ladies in the room, his and his friend. He does not have much complaints to offer. He feels good except for some shortness of breath. OBJECTIVE: VITAL SIGNS: Blood pressure is 149/67, pulse is 72, respiratory rate is 16, O2 saturation is 94% on room air. His weight is 290 pounds. HEENT: His head is atraumatic and normocephalic. He is obese. Eyes are PERRLA. Sclerae are nonicteric. Conjunctivae are pinkish. Oral mucosa is moist. NECK: Supple. LUNGS: Breath sounds somewhat diminished at the left base with several crackles. No wheezing. HEART: S1 and S2 normal. No S3. No S4. No any murmur. ABDOMEN: Soft, nontender. Bowel sounds are present. No organomegaly. EXTREMITIES: No clubbing, cyanosis, or edema. NEUROLOGIC: He is alert and oriented x4. There is no any sensory or motor deficits present. Cranial nerves are intact. LABORATORY DATA: Labs showed white count of 12.0, hemoglobin 15.5, hematocrit 47.5, and platelet count is 113,000. Chemistry showed sodium of 140, potassium 4.2, chloride 109, CO2 of 23, BUN 24, creatinine 0.72, glycemia is ranging from 93 to 121, and calcium is 8.5. IMPRESSION: 1. Lung cancer, preliminary report is small cell. 2. Rhinitis. 3. BPH. 4. Dyslipidemia. 5. Liver mass. 6. Hypertension. 7. Obesity. 8. Tobacco abuse. PLAN: Plan is to continue chemotherapy as per Oncology Service. Continue DuoNeb. Continue ceftriaxone 1 g every 24 hours. Continue dexamethasone and continue Flomax, along with Crestor. Job ID: [id number]
[2018-05-11] MEDS ORDERED: Furosemide 20 MG/2 ML VIAL SLOW IVP SCH (19:15)
--- NOTE | 2018-05-11 19:27 | PRG ---
DATE OF SERVICE: 05/11/2018 SERVICE: Pulmonary Medicine. INTERVAL HISTORY: The patient is doing okay from a respiratory standpoint. He is having increasing work of breathing and shortness of breath. The cough is about stable if not slightly improved. He is not bringing up any sputum any longer. He feels a little bit heavy around the chest. When I told him about due to progression, he thought that made plenty of sense to him. PHYSICAL EXAMINATION: VITAL SIGNS: Afebrile, pulse 77, blood pressure 128/70, respirations 20, saturation 91% on room air. GENERAL: The patient is awake and alert, in no apparent distress. LUNGS: Really improved air entry with dramatic reduction in the rhonchi. That being said, I do hear end-expiratory wheezing which is quite faint. Lastly, he has extensive bibasilar crackles present. HEART: Normal rate, regular. ABDOMEN: Soft, nontender, and nondistended. Bowel sounds are positive. MUSCULOSKELETAL: No cyanosis or clubbing. There is trace pitting in the bilateral lower extremities. NEUROLOGIC: Grossly nonfocal. LABORATORY DATA: WBC 12.0, hemoglobin 15.5, platelets 130,000. Basic metabolic profile is completely unremarkable. His creatinine is 0.72. ASSESSMENT: 1. small cell lung cancer (this is a preliminary report). 2. Gastroesophageal reflux disease. 3. Chronic cough, improving. 4. Rhinitis. DISCUSSION AND PLAN: I will give the patient dose of Lasix tonight and tomorrow morning. Pulmonary Critical Care will continue to follow as along as the patient remains in-house, but from purely respiratory perspective he is approaching readiness for being discharged. Job ID: [id number]
[2018-05-11] MEDS: Tamsulosin HCl 0.4 MG CAP PO SCH (20:19)
[2018-05-11] MEDS: Ubidecarenone 50 MG CAP PO SCH (20:19)
[2018-05-11] MEDS: Rosuvastatin 10 MG TAB PO SCH (20:20)
[2018-05-11] MEDS: Nicotine 14 MG PATCH TD SCH (20:26)
[2018-05-12] MEDS: Phenergan/Codeine 10-6.25mg/5ml UDCUP PO PRN (01:18)
[2018-05-12] MEDS: Senokot S 8.6-50 MG TAB PO PRN (06:37)
[2018-05-12] MEDS: Mometasone/Formoterol 120 PUFF INHALER INH SCH (08:27)
[2018-05-12] MEDS: Fluticasone Propionate Nasal Spray 16 gm Bottle NASAL SCH (08:41)
[2018-05-12] MEDS: predniSONE 20 MG TAB PO SCH (08:41)
[2018-05-12] MEDS: Azelastine 137 MCG/Spray 30 ML NS SCH (08:42)
[2018-05-12] MEDS: Docusate 100 MG CAP PO SCH (08:43)
[2018-05-12] MEDS: Famotidine 20 MG TAB PO SCH (08:43)
[2018-05-12] MEDS ORDERED: Furosemide 20 MG/2 ML VIAL SLOW IVP SCH (09:00)
[2018-05-12] MEDS: Dexamethasone 10 MG/ML VIAL SLOW IVP SCH (10:55)
[2018-05-12 11:26] VITALS: TEMP 97.7
[2018-05-12] MEDS: SODIUM CHLORIDE 0.9% IVPB SCH (11:33)
[2018-05-12] MEDS: ETOPOSIDE IVPB SCH (11:33)
--- NOTE | 2018-05-12 13:22 | PRG ---
DATE OF SERVICE: 05/12/2018 SUBJECTIVE: The patient is doing fairly well. He says he has just received his third dose of chemotherapy today and he is ready to go home. OBJECTIVE: VITAL SIGNS: Temperature 97.7, pulse 79, respirations 20, O2 saturation 92% on room air, blood pressure 145/81. GENERAL: He appears in no distress. HEENT: Unremarkable. NECK: No JVD. LUNGS: Clear. CARDIAC: S1, S2. Regular. ABDOMEN: Soft. EXTREMITIES: No edema. LABORATORY DATA: No new labs were done today. ASSESSMENT: 1. Small cell lung cancer. 2. History of pneumonia. 3. Tobacco abuse. 4. Obstructive sleep apnea. PLAN: The patient appears medically stable for discharge. I would be glad to see him in the clinic in the future as needed. He has been told not to smoke or drink. Job ID: [id number]
[2018-05-12] MEDS ORDERED: Pegfilgrastim Onpro 6 MG/0.6 ML SQ SCH (14:30)
[2018-05-12] MEDS: cefTRIAXone\\ROCEPHIN 1 GM in Sodium Chloride 0.9% 100 ML IVPB SCH (14:40)
--- NOTE | 2018-05-12 17:01 | PRG ---
DATE OF SERVICE: 05/12/2018 SUBJECTIVE: The patient is seen and examined at the bedside. He is feeling good. His shortness of breath improved. He finished his chemotherapy through the course and he would like to go home. OBJECTIVE: VITAL SIGNS: Blood pressure is 145/81, pulse is 67, respiratory rate is 18, temperature 97.7, and O2 saturation is 96% on room air. HEENT: His head is atraumatic and normocephalic. Eyes are PERRLA. Sclerae are nonicteric. Oral mucosa is moist. NECK: Supple. LUNGS: Clear. HEART: S1 and S2 normal. ABDOMEN: Soft, nontender, and nondistended. EXTREMITIES: No edema. NEUROLOGIC: He is alert and oriented x4. There is no evidence of any sensory or motor deficits. Cranial nerves are intact. LABORATORY DATA: None today. IMPRESSION: 1. Small cell lung cancer. 2. Positive bronchial washings for stenotrophomonas maltophilia. This is respiratory culture resistant to Bactrim and levofloxacin. 3. Dyslipidemia. 4. Benign prostatic hypertrophy. 5. Rhinitis. 6. Liver mass. 7. Hypertension. 8. Obesity. 9. Tobacco abuse. 10. Obstructive sleep apnea. DISCUSSION/PLAN: I had a long discussion with the family and with the patient regarding new findings of stenotrophomonas maltophilia growth. I contacted Dr. Lucero, who advised me to contact Dr. Lai, which was done and he thinks this is more contamination than anything else. I put official consult for Dr. Lai since the family had hard time to understand what is going on and how this problem needs to be approached. For now, we will continue his current regimen with antibiotic, Rocephin, and p.r.n. DuoNeb along with some nasal sprays for his nasal congestion. We will lower his prednisone to 30 mg once a day and this will be tapered gradually over the next week or so. Job ID: [id number]
[2018-05-12 18:32] VITALS: BP 110/65
--- NOTE | 2018-05-13 03:11 | DIS ---
DATE OF ADMISSION: 05/07/2018 DATE OF DISCHARGE: 05/12/2018 CONSULTANTS: 1. Papito Verdugo MD, Medical Oncology. 2. Lukasz Bynum MD, Pulmonary Service. 3. Sweetie Cisneros MD, General Surgery. 4. Anup Pedraza MD, Pulmonary Service. 5. Brandon Lucero MD, Pulmonary Service. FINAL DIAGNOSES: 1. Small cell lung cancer. 2. Positive bronchial washing for Stenotrophomonas maltophilia, felt to be contamination since the patient does not present with symptoms and signs of pneumonia. 3. Benign prostatic hypertrophy. 4. Dyslipidemia. 5. Rhinitis. 6. Liver mass. 7. Hypertension. 8. Obesity. 9. Tobacco abuse. 10. Obstructive sleep apnea. IMAGING: CT of the abdomen and pelvis showed, 1. Probable metastatic mass of the right liver lobe. 2. Nonobstructing 5 mm left renal calculus. 3. Atherosclerosis. 4. CT of the brain showed no CT evidence to indicate intracranial metastases. Chest x-ray, 1. Right internal jugular MediPort is in good radiographic position. 2. Left hilar mass, pulmonary vascular congestion and other findings like cardiac silhouette enlargement present. PROCEDURE: Bronchoscopy with biopsy. FINDINGS: Small cell carcinoma. HOSPITAL COURSE: The patient is a 62-year-old male with past medical history of hypertension, GERD, obesity, atrial fibrillation, osteoarthritis, sleep apnea, and hyperlipidemia, who had presented to [facility] with cough and shortness of breath going on for approximately 3 months. He had seen Dr. Abbott, his primary care physician, about 1 month ago and had been treated for possible bronchitis. He was started on Levaquin and prednisone. Approximately 3 to 4 days prior to this admission, he started having some blood in his sputum. Primary care physician, when he learned about this, he directed him to emergency room department for evaluation and management. A chest x-ray was done in the Emergency Room and was abnormal and showed perihilar mass-like opacity and silhouetting of the left heart margin, and chest CT was recommended. He underwent a CT of the chest without contrast, which did show a large left perihilar mass with mediastinal invasion as well as extensive subcarinal, prevascular, AP window, right peritracheal adenopathy as well as right hilar lymph nodes. This was concerning for cancer. He underwent CT angiogram of the chest, which showed extensive mass-like conglomerate adenopathy of chest with probable associated metastatic invasion of the left pulmonary parenchymal and possible superimposed postobstructive consolidation. He was admitted to the hospital and at the time of evaluation, his blood pressure was 143/68, pulse was 82, respiratory rate 22, and O2 saturation was 99% on 2 L by nasal cannula. His white count was 12.2, hemoglobin of 17.1, creatinine 0.77, glucose 106, troponin less than 0.010. BNP was 13.6. Pulmonology and Oncology services were consulted. He was started on Decadron nebulizer treatment and supportive care, and bronchoscopy was planned to be done the next day. Bronchoscopy was done with transbronchial biopsies and brushings. The patient underwent CT of the abdomen and pelvis with IV and oral contrast, which showed probable metastatic mass of the right liver lobe and nonobstructing 5 mm left renal calculus along with atherosclerosis. Pathology report from lung biopsy came back as small cell lung carcinoma. A CT of the brain was done, which did not show any metastasis. The culture on bronchial washings came back positive for Stenotrophomonas maltophilia, resistant to levofloxacin and Bactrim. Acid-fast bacilli smear was negative and culture for acid-fast bacilli are still pending, this from bronchial washing. With those new findings on his respiratory culture, [employer] revenue officer was contacted and he recommended to get ID Service involved. Dr. Lai was called and he felt that this was most likely either contamination or nonpathological finding, and he recommended to discharge the patient home. OBJECTIVE: Clinically, the patient is doing well. He is saturating 96% on room air. His respirations 18, pulse 67, temperature 97.7, blood pressure 145/81. LUNGS: Clear. HEART: S1 and S2 normal. No S3. No S4. No murmur. ABDOMEN: Soft, obese. He is eager to go home. Dr. Verdguo, Medical Oncologist, called Dr. Lai since the family was not happy with the explanation he got from the hospitalist which was me but after discussion with Dr. Lai, decision was made about sending the patient home and following up with Dr. Verdugo after seeing the patient's primary care physician in 1 week. MEDICATIONS: At the time of discharge: 1. Omeprazole 40 mg at bedtime. 2. Metoprolol succinate 50 mg once a day. 3. ProAir 1 to 2 puffs q.4 hours p.r.n. as needed. 4. Fluticasone 1 inhalation at bedtime. 5. Crestor 10 mg at bedtime. 6. Flomax 0.4 mg at bedtime. 7. Colace 1 tablet, once a day. 8. Celecoxib 200 mg twice a day. 9. Aspirin 81 mg a day. 10. Coenzyme Q10 of 100 mg once a day. 11. Levaquin 500 mg capsules one a day for the next 6 days. He will also follow up with Dr. Lucero or Dr. Pedraza, [employer] revenue officer, involved in his care after he gives them a phone call to set up a followup appointment. This discharge is more than 30 minutes, time spent on it. Job ID: [id number]
[2018-05-13 12:08] LABS: Fungus Stain Final report (.)
--- NOTE | 2018-05-14 11:42 | OP ---
DATE OF PROCEDURE: 05/10/2018 PROCEDURE PERFORMED: Right internal jugular MediPort placement with ultrasound and fluoroscopic guidance. PREOPERATIVE DIAGNOSIS: Small cell lung cancer. POSTOPERATIVE DIAGNOSIS: Small cell lung cancer. HISTORY: Mr. Perry is a 62-year-old man recently diagnosed with small cell lung cancer, chemotherapy is going to be initiated and he requires a MediPort for this. DESCRIPTION OF PROCEDURE: After informed consent was obtained and appropriate preoperative antibiotics were administered, the patient was taken to the operating room. He was placed in supine position and monitored anesthesia care was administered. He was prepped and draped in standard sterile fashion and local anesthesia infused through skin and subcutaneous tissues overlying the patent compressible right internal jugular vein. This was accessed under direct ultrasound guidance with excellent flow of dark venous blood and a wire threaded easily and was confirmed by fluoroscopy to be in the superior vena cava. Local anesthesia was infused through skin and subcutaneous tissues of the right chest and neck. A transverse skin incision was made overlying the pectoralis muscles and subcutaneous pocket created. A MediPort was obtained and placed in this pocket and secured with Prolene sutures. The MediPort was then tunneled from this incision to the right IJ access site. Dilator and sheath were placed over the wire and the dilator and wire removed leaving the sheath in place. The MediPort tubing was placed through the sheath, which was then split and removed. The tip of the MediPort tubing was confirmed to be in good position in the superior vena cava. This was then attached to the MediPort hub and easily aspirated dark venous nonpulsatile blood and easily flushed without resistance. The skin of the right IJ access site was closed with 4-0 Monocryl and Dermabond dressings were placed. The right chest incision was closed with 3-0 subcutaneous and 4-0 subcuticular Monocryl sutures and Dermabond dressings were also placed. The port was accessed through the skin and aspirated and flushed and this access was sterilely dressed with gauze and Tegaderm for immediate postoperative institution of chemotherapy. ESTIMATED BLOOD LOSS: Minimal. COMPLICATIONS: There were no complications. SPECIMEN: There were no specimens. Job ID: [id number]
== END 2018-05-12 18:30 | disposition home or self-care (01) | DRG 982 ==
LOC: ERS 12:36 → 2NO 16:57 → ONC 05-09 19:18
PROVIDERS: ADMIT Internal Medicine Infectious Disease; ATTEND Internal Medicine Infectious Disease
PROC: 0B9G8ZX Drainage of Left Upper Lung Lobe, Via Natural or Artificial Opening Endoscopic, Diagnostic (ICD-10-PCS; principal; 2018-05-09)
PROC: 0BD88ZX Extraction of Left Upper Lobe Bronchus, Via Natural or Artificial Opening Endoscopic, Diagnostic (ICD-10-PCS; 2018-05-09)
PROC: 0JH60WZ Insertion of Totally Implantable Vascular Access Device into Chest Subcutaneous Tissue and Fascia, Open Approach (ICD-10-PCS; 2018-05-10)
PROC: 02HV33Z Insertion of Infusion Device into Superior Vena Cava, Percutaneous Approach (ICD-10-PCS; 2018-05-10)
PROC: B5181ZA Fluoroscopy of Superior Vena Cava using Low Osmolar Contrast, Guidance (ICD-10-PCS; 2018-05-10)
PROC: B548ZZA Ultrasonography of Superior Vena Cava, Guidance (ICD-10-PCS; 2018-05-10)
DX: C34.92 Malignant neoplasm of unspecified part of left bronchus or lung (principal); R04.2 Hemoptysis; I10 Essential (primary) hypertension; K21.9 Gastro-esophageal reflux disease without esophagitis; E66.9 Obesity, unspecified; Z68.36 Body mass index [BMI] 36.0-36.9, adult; I48.91 Unspecified atrial fibrillation; M19.90 Unspecified osteoarthritis, unspecified site; E78.5 Hyperlipidemia, unspecified; G47.33 Obstructive sleep apnea (adult) (pediatric); F17.210 Nicotine dependence, cigarettes, uncomplicated; N40.0 Benign prostatic hyperplasia without lower urinary tract symptoms; R16.0 Hepatomegaly, not elsewhere classified; J31.0 Chronic rhinitis; Z79.82 Long term (current) use of aspirin; Z95.0 Presence of cardiac pacemaker
CPT/HCPCS: 36415; 70470; 71045; 71275; 74177; 76000; 76001; 80048; 80053; 83615; 84550; 85025; 87070; 87077; 87102; 87116; 87186; 87205; 87206; 88104; 88112; 88305; 88312; 88341; 88342; 88360; 90471; 90670; 90686; 94640; 94664; 96377; C1788; G0008; G0009; J0171; J0690; J0696; J1100; J1642; J1885; J1940; J2001; J2250; J2405; J2469; J2505; J2704; J3010; J7050; J7506; J7620; J7626; J9045; J9181

== ENCOUNTER 2018-05-20 11:27 | Outpatient (CLI) | payer BC ==
--- NOTE | 2018-05-20 14:08 | PET ---
NUCLEAR MEDICINE FDG PET CT: (Positron Emission Tomography) DATE: 05/20/18 HISTORY: 62-year-old male with small cell lung cancer, initial staging. Status post chemotherapy, last treatme nt was 05/12/18. COMPARISON: No prior PET scans. There is a noncontrast chest CT of 05/07/18. TECHNIQUE: IV injection F-18 Fluorodeoxyglucose (FDG) dose: 12.8 mCi PET and attenuation-correction CT performed from skull base to proximal thighs. FINDINGS: SUV (standard uptake value) numbers given are maximum SUV's. and use QCLR: Large conglomeration of masses in the prevascular space of the left side of the upper mediastinum rem ains, representing severe mediastinal malignant lymphadenopathy. It is minimally smaller now. It was previously 8 x 6.7 cm. It is currently approximately 8 x 6.5 cm. SUV is 11.8. The main pulmonary mass in the anterior segment of the left upper lobe contiguous with large left hilar mass, difficult to m easure because of its shape, has become smaller. SUV 8.5. In the anterior segment of left upper lobe, abutting the left mediastinal and left cardiac border, the confluent opacity has SUV of 8.0. Matted, confluent mediastinal lymphadenopathy, contiguous with the large left prevascular space conglomerati on of masses described above, also extends into the aortopulmonic window where the SUV is 6.0. One of the right paratracheal mediastinal lymph nodes was previously approximately 3.0 x 1.7 cm, and it has shrunk to current dimensions of approximately 1.6 x 1.0 cm. SUV 4.4. There is a new small left pleur al effusion. The left posterior hilar component of mass has SUV of 6.7. No hypermetabolic activity id entified in the left pleural effusion. No abnormally hypermetabolic activity within the abdominal cavity or pelvic cavity. Left supraclavicu lar lymph node SUV 7.9. This appears to be a conglomeration of supraclavicular lymph nodes which is d ifficult to visualize on the attenuation correction CT because of streak artifact from generator for the pacemaker on the left side. Rough dimensions are approximately 4 x 2.5 cm. Generalized diffusely increased uptake throughout the bone marrow, without evidence of obviously destructive osseous lesion on the attenuation correction CT. IMPRESSION: 1. Partial response to therapy. 2. Interval decrease in size of the pulmonary mass in the anterior segment of the left upper lobe co ntiguous with left hilar mass. 3. Minimal improvement in the severe mediastinal lymphadenopathy. 4. New small left pleural effusion. 5. Left supraclavicular metastatic cervical lymphadenopathy. 6. No evidence of metastatic disease within the abdominal cavity or pelvic cavity. LALY Wahl POS: [facility]
== END 2018-05-20 11:28 | disposition home or self-care (01) ==
LOC: PET 11:27
PROVIDERS: ATTEND Internal Medicine Hematology & Oncology
DX: C34.90 Malignant neoplasm of unspecified part of unspecified bronchus or lung (principal); R91.8 Other nonspecific abnormal finding of lung field; R59.0 Localized enlarged lymph nodes; J90 Pleural effusion, not elsewhere classified; C77.0 Secondary and unspecified malignant neoplasm of lymph nodes of head, face and neck
CPT/HCPCS: 36415; 78815; 80053; 82248; 83615; 84100; 84550; A9552

== ENCOUNTER 2018-07-29 08:22 | Outpatient (CLI) | payer BC ==
[~2018-07-29 08:22] MED LIST: Iopamidol 370 76% 100 ML VIAL ONE
--- NOTE | 2018-07-29 09:42 | CT ---
CT BRAIN WITH AND WITHOUT IV CONTRAST: INDICATIONS: History of brain metastatic disease and small cell carcinoma of the lungs. COMPARISON: 05/09/2018 FINDINGS: No acute infarct, hemorrhage, or hydrocephalus is present. The septum pellucidum and third ventricle are midline. No abnormal region of enhancement is demonstrated. The mastoid air cells are clear. The paranasal sinuses are clear. No focal calvarial lesion is grossly evident. A small suspected ve nous steiner is seen within the right frontal sinus. IMPRESSION: No evidence of intracranial metastatic disease. POS: [facility]
--- NOTE | 2018-07-29 10:29 | CT ---
CONTRAST ENHANCED CT IMAGES OF CHEST AND ABDOMEN AND PELVIS: DATE: 07/29/2018. COMPARISON: Comparison is made to a CTA chest from 05/07/[address] of abdomen and pelvis from 05/08/2018. FINDINGS: Left subclavian intracardiac pacing device is seen. ACDF plates and screws are in place in the lower cervical region. Previously noted extensive left superior mediastinal AP window lymphadenopathy as well as extensive a irspace opacities in the left upper lobe have resolved. Some minimal fibrotic changes remain in the left upper lobe. There is marked reduction of the AP window and superior mediastinal lymphadenopathy . There is minimal visualization of some tiny lymph nodes in this area. Previous areas of airspace opacity in the left upper lobe have resolved. No definite evidence of lung parenchymal metastatic disease seen. No evidence of axillary or hilar lymphadenopathy seen. Coronary artery calcification is seen. CT abdomen and pelvis demonstrate previously noted anterior right hepatic lobe parenchymal mass to rivera ve significantly decreased in size. There are some minimal cystic changes in this area. No definite evidence of other metastatic lesions seen. The pancreas is unremarkable. The gallbladder is contracted. Adrenal glands and kidneys are unremar kable. No evidence of paraaortic lymphadenopathy is seen. No evidence of renal lesion seen. The patient has had lumbar laminectomy changes with multilevel degenerative disk changes. Incidental ly noted approximately 6 mm renal calculus seen in the lower pole of the left kidney. IMPRESSION: 1. Resolved left upper lobe lung mass and significant or near complete resolution of superior and AP window lymphadenopathy. 2. Decreased hepatic parenchymal lesion nearly resolved. POS: [facility]
== END 2018-07-29 08:23 | disposition home or self-care (01) ==
LOC: CT 08:22
PROVIDERS: ATTEND Internal Medicine Hematology & Oncology
DX: C34.02 Malignant neoplasm of left main bronchus (principal); D69.59 Other secondary thrombocytopenia
CPT/HCPCS: 70470; 71260; 74177; Q9967

== ENCOUNTER 2018-10-30 08:37 | Outpatient (CLI) | payer BC ==
--- NOTE | 2018-10-30 10:17 | CT ---
CT BRAIN WITHOUT CONTRAST: HISTORY: Small cell lung cancer. Evaluate for brain metastases. COMPARISON: 07/29/2018 FINDINGS: No evidence of infarct, hemorrhage, mass, midline shift, or abnormal extraaxial fluid collection is s een. The ventricular size is normal, and the basilar cisterns are patent. No abnormal post contrast enhancement is noted. The bony calvarium is intact. No osseous metastatic lesions are seen. IMPRESSION: No evidence of intracranial metastatic disease. POS: [facility]
--- NOTE | 2018-10-30 10:31 | CT ---
CT CHEST WITH CONTRAST: CT ABDOMEN WITH CONTRAST: CT PELVIS WITH CONTRAST: HISTORY: Small cell lung cancer. Evaluate for treatment response. COMPARISON: CT from 07/29/2018. FINDINGS: There continues to be complete resolution of the left upper lobe and hilar mass. The mediastinal inv asion has resolved. No new suspicious pulmonary mass. There is extensive fibrosis in the upper lobes with paraseptal emphysema. No pneumothorax. No effus ion. No pericardial effusion. No supraclavicular, axillary, or mediastinal adenopathy. The adrenal glands are not involved. Multiple left peripelvic cysts. There is a nonobstructing 3 x 4 mm calculus left renal collecting system. Calcific granuloma of the spleen. The liver is unremarkable, as well as the gallbladder. No dilated loops of large or small bowel. No retroperitoneal or periaortic adenopathy. No suspicious osteolytic or osteoblastic lesions. Kita re degenerative disease of the lower lumbar spine with multilevel degenerative disk space height loss , sclerosis, and osteophyte formation. 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 Enth esopathic changes of the left adductor. No dilated loops of large or small bowel. IMPRESSION: 1. Continued resolution of the left upper lobe mass. 2. No residual adenopathy. 3. No evidence for distal metastatic disease. POS: [facility]
== END 2018-10-30 08:38 | disposition home or self-care (01) ==
LOC: BICCT 08:37
PROVIDERS: ATTEND Internal Medicine Hematology & Oncology
DX: C34.02 Malignant neoplasm of left main bronchus (principal); D69.59 Other secondary thrombocytopenia; R91.8 Other nonspecific abnormal finding of lung field
CPT/HCPCS: 70470; 71260; 74177

== ENCOUNTER 2019-01-26 10:29 | Outpatient (CLI) | payer BC ==
--- NOTE | 2019-01-26 11:36 | CT ---
CT ABDOMEN AND PELVIS WITH IV CONTRAST 01/26/2019 CLINICAL INFORMATION: Lung cancer with metastatic liver disease. Evaluate response to treatment. COMPARISON: 10/30/[address] thorax on 12/28/2018 Technique: Multiple contiguous axial CT images are obtained through the abdomen and pelvis with IV contrast. Cor onal reformatted images are provided. FINDINGS: Lower Chest: Increased peripheral linear interstitial densities are again seen likely due to chronic interstitial lung disease. Partial visualization of cardiac pacemaking leads in the right ventricle and right atrial appendage. Vessels: Vascular calcifications and atherosclerotic plaque is seen in the abdominal aorta and involv ing the iliac arteries. Abdomen: Portal vein:Patent Gallbladder: Tiny increased density focus is seen in the deep dependent portion of the gallbladder farzana men which may represent a tiny gallbladder calculus. This is similar in position to the prior exam. Focus of adherent sludge is a possibility versus tiny gallbladder polyp. Liver: within normal limits. Spleen: Slight heterogeneity without focal discrete measurable mass. Pancreas: within normal limits. Adrenals: Mild symmetric thickening of each adrenal gland without focal adrenal nodule. Kidneys: Stable inferior pole left renal calculus measuring 7 mm. There is stable mild left renal marisel iectasis without overt hydronephrosis. Kidneys otherwise have a normal CT appearance bilaterally Bowel: Normal caliber. Appendix: The appendix is visualized and normal in caliber. Peritoneum: No ascites or free air; no fluid collection. Mesentery and Retroperitoneum: No enlarged mesenteric or retroperitoneal lymph nodes. Abdominal Wall: Tiny fat-containing umbilical hernia. Pelvis: Reproductive Organs: No pelvic masses. Pelvis within normal limits. Bladder: within normal limits. Bones: Multilevel degenerative changes in the spine. No suspicious lytic or sclerotic osseous lesions are seen. Laminectomy defects are seen in the lumbar spine. IMPRESSION: 1. No CT evidence of metastatic disease. 2. Nonobstructing left renal calculus. 3. Chronic lung changes at each lung base. 4. Tiny increased density focus gallbladder lumen stable from prior studies and may represent either a tiny adherent gallbladder calculus or tiny gallbladder polyp.
[2019-01-26] MEDS ORDERED: ISOVUE-370 76%-LOCM 1 ML ONE (13:13)
--- NOTE | 2019-01-26 14:11 | CT ---
HEAD CT WITH AND WITHOUT CONTRAST: DATE: 01/26/2019. COMPARISON: 10/30/2018. HISTORY: Lung cancer with metastatic disease. TECHNIQUE: Axial CT imaging obtained from vertex through skull base with and without IV contrast. FINDINGS: The imaged paranasal sinuses and mastoid air cells are well aerated. There is no displaced calvarial fracture. No intracranial hemorrhage, midline shift, or mass effect is seen. The postcontrast imaging demonstrates no abnormal enhancement within the brain parenchyma. IMPRESSION: No acute findings. Postcontrast imaging demonstrates no abnormal enhancement within the brain parenc hyma. POS: [facility]
== END 2019-01-26 10:30 | disposition home or self-care (01) ==
LOC: BICCT 10:29
PROVIDERS: ATTEND Internal Medicine Hematology & Oncology
DX: C34.02 Malignant neoplasm of left main bronchus (principal); C78.7 Secondary malignant neoplasm of liver and intrahepatic bile duct; D69.59 Other secondary thrombocytopenia; N20.0 Calculus of kidney
CPT/HCPCS: 70470; 74177; 80053; 82248; 83615; 84100; 84436; 84443; 84550; Q9966

== ENCOUNTER 2019-03-30 10:24 | Outpatient (CLI) | payer BC ==
[2019-03-30] MEDS ORDERED: Iopamidol-370 76% 500 ML 1 ML ONE (11:03)
--- NOTE | 2019-03-30 11:28 | CT ---
PRE- AND POSTCONTRAST HEAD CT: COMPARISON: 01/26/2019. FINDINGS: Noncontrast head CT: No parenchymal hemorrhage. No extraaxial hematoma. No midline shift. Basilar cisterns are patent. Brain volume is age-appropriate. Cortical dennis-white white matter differentiation is preserved. No hydrocephalus. Adequate aeration of the sinuses and mastoid air cells. Calvarium is intact. Postcontrast imaging: No pathologic enhancement the brain parenchyma. IMPRESSION: Unremarkable pre- and postcontrast head CT. Transcribed Date/Time: 03/30/2019 11:51 AM
--- NOTE | 2019-03-30 12:07 | CT ---
CT THORAX WITH CONTRAST CT ABDOMEN WITH CONTRAST CT PELVIS WITH CONTRAST: DATE: 03/30/2019 HISTORY: 63-year-old male with small cell carcinoma (malignant neoplasm of left main bronchus). Follow-up. COMPARISON: 01/26/[address] 12/28/[address] TECHNIQUE: IV iodinated contrast media: Administered Oral contrast media: Administered Single phase scans of thorax, abdomen, and pelvis. FINDINGS: Thorax: Reticular interstitial densities in bilateral upper lobes and lower lobes, in subpleural distribution . Multiple small biapical blebs. No evidence of recurrent neoplastic tumor mass. Nonspecific mildly enlarged multiple mediastinal lymph nodes, unchanged. Essentially normal thoracic aorta. No pleural effusion or pneumothorax. No acute infiltrate. ABDOMEN: Moderate thickening of bilateral adrenal glands. No hepatic metastasis identified. 4 x 7 x 6 mm left renal lower pole calculus. No hydronephrosis or focal perfusion defect. Normal pancreas and spleen. No abdominal aortic aneurysm. No mesenteric, retroperitoneal, or maria victoria hepatis lymphadenopathy. No sm all bowel dilation. No obvious pathology of colon. Pelvis: No free fluid within pelvic cavity. No iliac chain lymphadenopathy. Decompressed urinary bladder. Laminectomy defects from L2-3 through L4-5. High-grade degenerative disc disease at multiple levels i n lumbar spine, worst at L2-3. No destructive osseous lesion identified No major interval change overall. IMPRESSION: 1) no evidence of metastatic disease or recurrent primary lung cancer. 2) subpleural reticular densities: At least mild pulmonary fibrosis. 3. At least mild paraseptal emphysema. 4. Lumbar spondylosis with multilevel high-grade degenerative disc disease. Status post laminectomies at multiple levels in lumbar 5. Bilateral adrenal hyperplasia.
== END 2019-03-30 10:25 | disposition home or self-care (01) ==
LOC: BICCT 10:24
PROVIDERS: ATTEND Internal Medicine Hematology & Oncology
DX: C34.02 Malignant neoplasm of left main bronchus (principal); D69.59 Other secondary thrombocytopenia; B02.9 Zoster without complications; J43.9 Emphysema, unspecified; J84.10 Pulmonary fibrosis, unspecified; E27.8 Other specified disorders of adrenal gland; M47.816 Spondylosis without myelopathy or radiculopathy, lumbar region; M51.36 Other intervertebral disc degeneration, lumbar region; Z98.890 Other specified postprocedural states
CPT/HCPCS: 36415; 70470; 71260; 74177; 84436; 84443; Q9967

== ENCOUNTER 2019-06-09 10:33 | Outpatient (CLI) | payer BC ==
--- NOTE | 2019-06-09 12:06 | RAD ---
2 VIEW CHEST: (PA AND LATERAL VIEWS) Date: 06/09/2019 INDICATION: Small cell lung cancer, in remissions. Wheezing. The most recent chest film available is portable exam from 05/10/18. FINDINGS: Heart size within normal range. Vascular and interstitial markings are mildly prominent and similar t o prior study. Dual lead pacemaker leads are unchanged. MediPort catheter is unchanged and overlies t he SVC. No focal infiltrate and no evidence of significant effusion. IMPRESSION: Mild vascular and interstitial prominence. An element of mild interstitial edema superimposed on some chronic interstitial changes may be present. POS: [facility]
== END 2019-06-09 10:34 | disposition home or self-care (01) ==
LOC: BICRAD 10:33
PROVIDERS: ATTEND Internal Medicine
DX: C34.02 Malignant neoplasm of left main bronchus (principal); R06.2 Wheezing; J84.89 Other specified interstitial pulmonary diseases; I28.8 Other diseases of pulmonary vessels
CPT/HCPCS: 71046

== ENCOUNTER 2019-07-20 07:30 | Outpatient (CLI) | payer BC ==
--- NOTE | 2019-07-20 08:58 | CT ---
CT BRAIN WITH AND WITHOUT CONTRAST: DATE: 07/20/2019. HISTORY: A 63-year-old male with small cell lung cancer. Evaluate for brain metastasis. COMPARISON: 03/30/2019. TECHNIQUE: Precontrast scan of brain. IV injection iodinated contrast media: 70 mL Isovue 370. Postcontrast scan of brain. FINDINGS: There is no midline shift or any other mass effect. There is no evidence of acute intracranial hemor rhage, large cortical infarct, obstructive hydrocephalus, or extraaxial fluid collection. There is n o abnormal enhancement or mass. The calvarium is intact. There is partial opacification of the righ t maxillary sinus with air fluid level and polypoid mucosal thickening, which is the only interval ch rosalba compared to the prior CT. IMPRESSION: No acute or aggressive intracranial findings. jn [] POS: [facility]
--- NOTE | 2019-07-20 09:24 | CT ---
CT OF CHEST AND ABDOMEN AND PELVIS PERFORMED WITH INTRAVENOUS CONTRAST ENHANCEMENT: HISTORY: Small-cell lung cancer of left main bronchus. Followup. Patient on immunotherapy. COMPARISON: 03/30/2019 study. FINDINGS: There are emphysematous lung changes seen. These changes appear stable as compared to the prior exam . There is reticular scarring which is more peripheral in location. There are some changes of honey combing in the right upper lobe seen. There are no pleural effusions. There is no significant mediastinal, hilar, or axillary lymphadenopathy. Thoracic aorta is normal in caliber. Thyroid gland is normal in size. CT OF ABDOMEN PERFORMED WITH CONTRAST ENHANCEMENT: No focal abnormalities of the liver. The spleen is within normal limits of size. Pancreas and gallb ladder regions appear unremarkable. Right and left adrenal glands still maintain a slightly hyperplastic appearance without focal discret e mass. Right and left kidneys are normal in size. There is a nonobstructing lower pole left renal calculus measuring in the 6 mm range. There is no significant periaortic or mesenteric adenopathy. CT OF PELVIS PERFORMED WITH CONTRAST: No adenopathy, mass, or free fluid. Review of osseous structures shows arthritic changes of the spine and some mild arthritic changes of both hips. No lytic or blastic bony change. IMPRESSION: 1. Stable overall examination. 2. No evidence of metastatic disease or recurrent lung cancer. 3. Nonobstructing lower pole left renal calculus. 4. Emphysematous lung change. POS: [facility]
[2019-07-20] MEDS ORDERED: Iopamidol-370 76% 500 ML 1 ML ONE (14:48)
== END 2019-07-20 07:31 | disposition home or self-care (01) ==
LOC: BICCT 07:30
PROVIDERS: ATTEND Internal Medicine Hematology & Oncology
DX: C34.02 Malignant neoplasm of left main bronchus (principal); N20.0 Calculus of kidney; J43.9 Emphysema, unspecified
CPT/HCPCS: 70470; 71260; 74177; Q9967

== ENCOUNTER 2019-11-02 08:19 | Outpatient (CLI) | payer BC ==
--- NOTE | 2019-11-02 09:21 | CT ---
EXAM: CT brain with contrast HISTORY: Small cell lung cancer COMPARISON: 11/02/2019 TECHNIQUE: Multiple contiguous axial images were obtained and a CT of the brain with contrast. FINDINGS: There are subtle stable scattered hypodensities in the subcortical and periventricular whit e matter consistent with small vessel ischemic disease. There is no evidence of hydrocephalus, intracranial hemorrhage, or extra-axial fluid collection. Evaluation for intracranial hemorrhage is l imited with IV contrast. No abnormal enhancement is seen. The calvarium and overlying soft tissues are unremarkable. The visualized paranasal sinuses and masto id air cells are well aerated. IMPRESSION: No evidence of acute intracranial abnormality
--- NOTE | 2019-11-02 09:28 | CT ---
CT OF THE CHEST, ABDOMEN AND PELVIS WITH IV CONTRAST INDICATION: History of small cell cancer; evaluate for response to treatment; history of hepatic meta static disease COMPARISON: July 20, 2019 and March 30, 2019. FINDINGS: CHEST: Lungs: No suspicious pulmonary nodule or mass is demonstrated. Scattered emphysema and peripheral int erstitial fibrotic changes are similar appearing. Small suspected peripheral intraparenchymal lymph node seen adjacent to the right minor fissure in the right middle lobe on image 34 series 3 is stable . Pleural space: No effusion. Mediastinum: There are mild vascular calcifications seen involving the visualized vasculature. No pat hologically enlarged lymph nodes are evident. Axilla: No pathologically enlarged lymph nodes. ABDOMEN: Liver: No focal lesion. Gallbladder: Normal appearing. Pancreas: Normal. Adrenal glands: Normal. Spleen: Normal. Kidneys and ureters: Stable left nephrolithiasis. Right kidney appears within normal limits. There is tiny 1 to 2 mm nonobstructing calculus involving the interpolar right kidney. This is stable to the prior. Vasculature: There are moderate vascular calcifications seen involving the visualized vasculature. Lymph nodes:No lymphadenopathy. Free fluid in abdomen:No free fluid is evident. PELVIS: Small and large bowel: Normal Appendix:Normal Bladder: Normal. Rectal and perirectal soft tissues:Normal. Reproductive structures: Normal. Free fluid in pelvis: No free fluid is evident. Lymphadenopathy pelvis: No lymphadenopathy is evident. Osseous structures: No acute osseous abnormality. No destructive osteolytic or osteoblastic lesion i s identified. There is scattered degenerative and osteoarthritic changes. Soft tissues:Normal. IMPRESSION: 1. No evidence to suggest recurrent disease or metastatic disease when compared to the prior. 2. Stable bilateral nephrolithiasis. 3. Stable chronic lung changes.
[2019-11-02] MEDS ORDERED: Iopamidol 370 76% 100 ML VIAL ONE (13:42)
== END 2019-11-02 08:20 | disposition home or self-care (01) ==
LOC: BICCT 08:19
PROVIDERS: ATTEND Internal Medicine
DX: C34.02 Malignant neoplasm of left main bronchus (principal); N20.0 Calculus of kidney
CPT/HCPCS: 70460; 71260; 74177; Q9967

== ENCOUNTER 2020-02-15 09:54 | Outpatient (CLI) | payer BC ==
[~2020-02-15 09:54] MED LIST changes: -Iopamidol 370 76% 100 ML VIAL ONE; +Iopamidol-370 76% 500 ML 1 ML ONE
--- NOTE | 2020-02-15 11:19 | CT ---
CT Brain W Con HISTORY: Small cell lung cancer. Malignant neoplasm of the left main bronchus. Other secondary thromb ocytopenia. Zoster without complications. COMPARISON: 11/02/2019. FINDINGS: Changes of chronic small vessel ischemic disease in the periventricular and subcortical whi te matter are again seen. No evidence of infarct, hydrocephalus, mass, midline shift or abnormal extra-axial fluid collections is seen. Evaluation for intracranial hemorrhage is limited due to presence of IV contrast and no precontrast i mages. No definite evidence of hemorrhage is however seen. The bony calvarium is intact. The visualized paranasal sinuses are well-aerated. There is fluid in th e right mastoid air cells. IMPRESSION: No definite evidence of acute intracranial process or mass.
--- NOTE | 2020-02-15 11:31 | CT ---
EXAM: CT chest, abdomen, and pelvis with IV contrast: HISTORY: Small cell lung cancer. Evaluate response to treatment. COMPARISON: 11/02/2019 FINDINGS: CT THORAX: Lungs: Again noted are emphysematous changes and chronic interstitial fibrotic lung changes unchanged from prior study. A few subcentimeter nodular densities are again seen along the medial aspect of the minor fissure which again are likely related to intrapleural lymph nodes are similar to prior ney dy as well as a study in 2011. No new pulmonary nodule, mass, or area of consolidation is seen in the lungs bilaterally Pleura: No pleural effusion. Lymph nodes: No enlarged lymph nodes are seen by CT size criteria. Mediastinum: Again noted is a dual-lead left subclavian cardiac pacemaking device. Vascular calcifica tions are again seen in the coronary arteries and in the aortic arch. Chest wall: Right internal jugular vein Mediport catheter remains in place. CT ABDOMEN AND PELVIS: Liver: A calcified granuloma is present. No focal hepatic lesion is appreciated. Gallbladder: Tiny increased density foci in the gallbladder lumen which may represent tiny gallbladde r calculi.\ Pancreas: Within normal limits. Spleen:Calcified granulomata. Adrenal glands: Slight nodular thickening of each adrenal gland is present and unchanged from prior s tudy. A similar appearance was seen on noncontrasted CT abdomen in 2009. Kidneys: Stable nonobstructing inferior pole left renal calculus with approximately 2 mm nonobstructi ng calculus inferior pole right kidney. Urinary Bladder: Incompletely distended. Reproductive organs: Within normal limits for patient's age. Bowel: Normal in caliber. Adenopathy:No lymphadenopathy within the abdomen or pelvis. Peritoneum: No free fluid or fluid collection is seen. No free intraperitoneal gas is identified. Abdominal wall: Small fat-containing umbilical hernia. Osseous structures: Degenerative changes are seen in the spine. No suspicious lytic or sclerotic osse ous lesions are identified. Postoperative changes lower cervical spine are seen. Postoperative changes lower lumbar spine are seen. There is partial sacralization of the right aspect of L5 with S1 with fusion of the right lateral mass of L5 with S1. IMPRESSION: 1. No findings to suggest metastatic disease or recurrent disease compared to prior study. 2. Stable bilateral nephrolithiasis. 3. Stable chronic lung changes.
== END 2020-02-15 09:55 | disposition home or self-care (01) ==
LOC: BICCT 09:54
PROVIDERS: ATTEND Internal Medicine Hematology & Oncology
DX: C34.02 Malignant neoplasm of left main bronchus (principal); N20.0 Calculus of kidney; J98.4 Other disorders of lung; D69.59 Other secondary thrombocytopenia
CPT/HCPCS: 70460; 71260; 74177; Q9967

== ENCOUNTER 2020-09-30 08:59 | Outpatient (CLI) | payer BC ==
[2020-09-30 09:35] LABS: Estimated GFR-MDRD - POC Greater than 90
[2020-09-30] MEDS ORDERED: Iopamidol-370 76% 500 ML 1 ML ONE (12:33)
== END 2020-09-30 09:00 | disposition home or self-care (01) ==
LOC: BICCT 08:59
PROVIDERS: ATTEND Internal Medicine Hematology & Oncology
DX: C34.02 Malignant neoplasm of left main bronchus (principal); D69.59 Other secondary thrombocytopenia; B02.9 Zoster without complications; N20.0 Calculus of kidney; I67.82 Cerebral ischemia
CPT/HCPCS: 70470; 71260; 74177; 82565; Q9967

== ENCOUNTER 2021-03-16 08:30 | Outpatient (CLI) | payer MEDICARE, BC | END 2021-03-16 08:31 | disposition home or self-care (01) | LOC: CT 08:30 | PROVIDERS: ATTEND Internal Medicine Hematology & Oncology | DX: C34.02 Malignant neoplasm of left main bronchus (principal); D69.59 Other secondary thrombocytopenia; B02.9 Zoster without complications | CPT/HCPCS: 70470; 71260; 74177 ==

== ENCOUNTER 2021-11-27 08:43 | Outpatient (CLI) | payer MEDICARE, BC ==
[2021-11-27] MEDS ORDERED: Iopamidol 370 76% 100 ML VIAL ONE (11:30)
== END 2021-11-27 08:44 | disposition home or self-care (01) ==
LOC: CT 08:43
PROVIDERS: ATTEND Internal Medicine Hematology & Oncology
DX: C34.02 Malignant neoplasm of left main bronchus (principal); D69.59 Other secondary thrombocytopenia; B02.9 Zoster without complications
CPT/HCPCS: 70470; 71260; 74177; Q9967

== ENCOUNTER 2022-03-30 08:56 | Outpatient (CLI) | payer MEDICARE, BC ==
[2022-03-30] MEDS ORDERED: Iopamidol-370 76% 500 ML 1 ML ONE (11:26)
== END 2022-03-30 08:57 | disposition home or self-care (01) ==
LOC: BICCT 08:56
PROVIDERS: ATTEND Internal Medicine Hematology & Oncology
DX: C34.02 Malignant neoplasm of left main bronchus (principal); D69.59 Other secondary thrombocytopenia; B02.9 Zoster without complications; N20.0 Calculus of kidney; I67.89 Other cerebrovascular disease
CPT/HCPCS: 36415; 70470; 71260; 74177; 80053; 82248; 83615; 84100; 84436; 84443; 84550; 85027

== ENCOUNTER 2022-09-03 12:32 | Outpatient (CLI) | payer MEDICARE, BC | END 2022-09-03 12:33 | disposition home or self-care (01) | LOC: CT 12:32 | PROVIDERS: ATTEND Internal Medicine Hematology & Oncology | DX: C34.02 Malignant neoplasm of left main bronchus (principal); S22.31XD Fracture of one rib, right side, subsequent encounter for fracture with routine healing; B02.9 Zoster without complications; D69.59 Other secondary thrombocytopenia; G93.6 Cerebral edema | CPT/HCPCS: 70450; 71260; 74177 ==

== ENCOUNTER 2022-12-31 12:24 | Outpatient (CLI) | payer MEDICARE, BC ==
[~2022-12-31 12:24] MED LIST changes: +Iopamidol 370 76% 100 ML VIAL ONE; -Iopamidol-370 76% 500 ML 1 ML ONE
== END 2022-12-31 12:25 | disposition home or self-care (01) ==
LOC: BICCT 12:24
PROVIDERS: ATTEND Internal Medicine Hematology & Oncology
DX: C34.02 Malignant neoplasm of left main bronchus (principal); D69.59 Other secondary thrombocytopenia; B02.9 Zoster without complications; R90.82 White matter disease, unspecified; N20.0 Calculus of kidney; N28.89 Other specified disorders of kidney and ureter; K57.30 Diverticulosis of large intestine without perforation or abscess without bleeding; E27.8 Other specified disorders of adrenal gland; I25.10 Atherosclerotic heart disease of native coronary artery without angina pectoris; I70.0 Atherosclerosis of aorta; K75.3 Granulomatous hepatitis, not elsewhere classified; D73.89 Other diseases of spleen; K63.89 Other specified diseases of intestine; K42.9 Umbilical hernia without obstruction or gangrene; I87.8 Other specified disorders of veins; Z98.1 Arthrodesis status; Z95.0 Presence of cardiac pacemaker
CPT/HCPCS: 70470; 71260; 74177; Q9967

== ENCOUNTER 2024-03-09 09:09 | Outpatient (CLI) | payer MEDICARE, BC | END 2024-03-09 09:10 | disposition home or self-care (01) | LOC: BICCT 09:09 | PROVIDERS: ATTEND Internal Medicine Hematology & Oncology | DX: C34.02 Malignant neoplasm of left main bronchus (principal); E27.9 Disorder of adrenal gland, unspecified | CPT/HCPCS: 70470; 71260; 74177 ==

== ENCOUNTER 2024-08-31 07:53 | Outpatient (CLI) | payer MEDICARE, BC ==
[2024-08-31] MEDS ORDERED: Iopamidol 370 76% 100 ML VIAL ONE (12:51)
== END 2024-08-31 07:54 | disposition home or self-care (01) ==
LOC: CT 07:53
PROVIDERS: ATTEND Internal Medicine Hematology & Oncology
DX: C34.02 Malignant neoplasm of left main bronchus (principal); D69.59 Other secondary thrombocytopenia; B02.9 Zoster without complications; E27.8 Other specified disorders of adrenal gland
CPT/HCPCS: 70470; 71260; 74177; 82248; 83615; 84100; 84436; 84550; Q9967; 36415; 80053; 84443; 85025

== ENCOUNTER 2025-03-02 07:18 | Outpatient (CLI) | payer MEDICARE, BC ==
[2025-03-02] MEDS ORDERED: Iopamidol 370 76% 100 ML VIAL ONE (12:20)
== END 2025-03-02 07:19 | disposition home or self-care (01) ==
LOC: CT 07:18
PROVIDERS: ATTEND Internal Medicine Hematology & Oncology
DX: C34.02 Malignant neoplasm of left main bronchus (principal); D69.59 Other secondary thrombocytopenia; B02.9 Zoster without complications; S22.42XD Multiple fractures of ribs, left side, subsequent encounter for fracture with routine healing; I67.82 Cerebral ischemia; R60.9 Edema, unspecified; H74.8X1 Other specified disorders of right middle ear and mastoid
CPT/HCPCS: 70470; 71260; 74177; Q9967